=== PATIENT | female | born 2000 | race Caucasian/White ===

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

== ENCOUNTER → 2021-08-24 12:13 | Outpatient (CLI) | payer MEDICAID, SELFPAY ==
[2021-08-24 14:46] LABS: HCG,Quantitative 938 mIU/ml (0-5.42)
== END ==
PROVIDERS: Obstetrics & Gynecology; Visit Provider Nurse Practitioner Obstetrics & Gynecology
DX: Z34.90 Encounter for supervision of normal pregnancy, unspecified, unspecified trimester (principal)
CPT/HCPCS: 36415; 84702

== ENCOUNTER → 2021-08-26 09:50 | Outpatient (CLI) | payer MEDICAID, SELFPAY ==
[2021-08-26 11:18] LABS: HCG,Quantitative 2283 mIU/ml (0-5.42)
== END ==
PROVIDERS: Visit Provider Obstetrics & Gynecology
DX: Z34.90 Encounter for supervision of normal pregnancy, unspecified, unspecified trimester (principal)
CPT/HCPCS: 36415; 84702

== ENCOUNTER 2021-08-26 16:30 | Emergency (ER) | payer MEDICAID, SELFPAY ==
[2021-08-26 16:31] VITALS: BP 132/86; PULSE 99; RESP 18; TEMP 36.9; O2SAT 100; BMI 29.9
[2021-08-26 17:43] LABS: Microscopic, Urine URINE MICROSCOPIC (MICROSCOPIC)
[2021-08-26 17:45] LABS: Appearance,Urine SL CLOUDY (Clear); Bilirubin,Urine Negative (Negative); Blood, Urine 1+ (Negative); Color,Urine YELLOW (Yellow); Glucose,Urine (UA) Negative (Negative); Ketones,Urine Negative (Negative); Leukocyte Esterase,Urine TRACE (Negative); Nitrate,Urine Negative (Negative); PH,Urine 6.5 (5.0-8.5); Protein,Urine Negative (Negative); Specific Gravity, Urine 1.015 (1.005-1.030)
[2021-08-26 17:51] LABS: Urine Pregnancy, HCG Qual. Positive (Negative)
--- NOTE | 2021-08-26 17:55 | HMH.EDGENADL ---
ED Disposition Clinical Impression: UTI (urinary tract infection) Qualifiers: Urinary tract infection type: site unspecified Hematuria presence: without hematuria Qualified Code(s): N39.0 - Urinary tract infection, site not specified Qualifiers: Weeks of gestation: unspecified Qualified Code(s): Z34.90 - Encounter for supervision of normal , unspecified, unspecified trimester Disposition: Home, Self-Care Condition on Discharge: Good Instructions: DI for Urinary Tract Infection (UTI) Additional Instructions: Additional instructions for URINARY TRACT INFECTION: Take antibiotic as prescribed. Began first dose tomorrow evening. See your physician in 2-3 days for follow up and culture results. Return immediately if you have an uncontrollable fever greater than 102 degrees, severe back or abdominal pain, inability to urinate, or repetitive vomiting. Prescriptions: cephALEXin [cephALEXin 500mg capsule*] 500 mg PO Q6H #28 cap Transmission Status: Pending to [facility] #[id number] Referrals: Provider,Referral, [Primary Care Provider] - - Critical Care Critical Care Time: No Attestation: On 08/26/21, the high probability of a clinically significant, sudden or life threatening deterioration of the following system(s) required my full and direct attention, intervention and personal management. The time I documented below is in addition to time spent performing reported procedures but includes the following listed in this critical care notation. Medical Decision Making - Anuj Inquiry Pt receiving controlled substance: No Vital Signs: 08/26/21 16:31 Temperature 98.5 F Temperature Source Oral Pulse Rate [Left Radial] 99 H Respiratory Rate 18 Blood Pressure [Right Arm] 132/86 Blood Pressure Mean [Right Arm] 101 Blood Pressure Source [Right Arm] Automatic Cuff Blood Pressure Position [Right Arm] Sitting 02 Sat by Pulse Oximetry 100 Oxygen Delivery Method Room Air - Lab Data Lab Results 08/26/21 17:32: Urine Color Yellow, Urine Appearance Sl cloudy, Urine pH 6.5, Ur Specific [place] 1.015, Urine Protein Negative, Urine Glucose (UA) Negative, Urine Ketones Negative, Urine Blood 1+, Urine Nitrate Negative, Urine Bilirubin Negative, Urine Urobilinogen 4.0, Ur Leukocyte Esterase Trace, Urine RBC None, Urine WBC 10-20, Ur Squamous Epith Cells 3-5, Urine Bacteria Trace 08/26/21 17:32: Urine HCG, Qual Positive 08/26/21 18:00: WBC 16.0 H, RBC 5.04, Hgb 14.3, Hct 42.8, MCV 84.9, MCH 28.3, MCHC 33.4, RDW 13.1, Plt Count 275, MPV 7.6, Neut % (Auto) 84.7 H, Lymph % (Auto) 10.1, [place] % (Auto) 4.2, Eos % (Auto) 0.5, Baso % (Auto) 0.4, Neut # (Auto) 13.6 H, Lymph # (Auto) 1.6, [place] # (Auto) 0.7, Eos # (Auto) 0.1, Baso # (Auto) 0.1, Total Counted 100, Neutrophils % (Manual) 79 H, Lymphocytes % (Manual) 14, Monocytes % (Manual) 7, Platelet Estimate Normal, Hypochromasia 1+, Anisocytosis 2+ 08/26/21 18:00: Sodium 137, Potassium 3.2 L, Chloride 98, Carbon Dioxide 27, Anion Gap 15.2 H, BUN 4 L, Creatinine 0.60, Estimated Creat Clear 194, Estimated GFR 129, Est GFR ( Amer) 156, Glucose 116 H, Calcium 8.6, Total Bilirubin 1.2, AST 27, ALT 30, Alkaline Phosphatase 72, Total Protein 8.3 H, Albumin 4.6, Globulin 3.7 H, Albumin/Globulin Ratio 1.2 Result diagrams: 08/26/21 18:00 08/26/21 18:00 Orders (Tests/Meds): ED MEDICATIONS Generic Name Dose Route Start Last Admin Trade Name Freq PRN Reason Stop Dose Admin Ceftriaxone Sodium 1 gm/ 50 mls @ 100 mls/hr 08/26/21 18:45 08/26/21 19:03 Sodium Chloride IV 09/09/21 18:44 100 mls/hr Q24H JAYME Administration ORDERS Category Date Time Status Urine Culture Stat Micro 08/26/21 17:32 Received General Adult HPI - General Chief complaint: Urogenital-Female Stated complaint: cold flashes, cramping, () unknown #weeks Time Seen by Provider: 08/26/21 18:01 Mode of Arrival: Ambulatory Limitations: No Limitations Description of Symp
[2021-08-26 17:59] LABS: Bacteria,Urine Trace /lpf
[2021-08-26 18:13] LABS: Basophils # 0.1 K/mm3 (0-0.2); Basophils % 0.4 % (0.1-2.0); Eosinophils # 0.1 K/mm3 (0.0-0.4); Eosinophils % 0.5 % (0.1-12.0); Hematocrit 42.8 % (37.0-47.0); Hemoglobin 14.3 g/dL (12.2-16.2); Lymphocytes # 1.6 K/mm3 (0.7-4.5); Lymphocytes % 10.1 % (10-50); Mean Corpuscular HGB Conc 33.4 g/dL (31.8-35.4); Mean Corpuscular Hemoglobin 28.3 pg (27.0-31.2); Mean Corpuscular Volume 84.9 fl (81-99); Mean Platelet Volume 7.6 fl (7.4-10.4); Monocytes # 0.7 K/mm3 (0.1-1.0); Monocytes % 4.2 % (1.7-9.3); Neutrophils # 13.6 K/mm3 (1.8-7.8); Neutrophils % 84.7 % (37.0-80.0); Platelet Count 275 K/mm3 (142-424); Red Blood Count 5.04 M/mm3 (4.20-5.40); Red Cell Distribution Width 13.1 % (11.5-17.5)
[2021-08-26 18:15] LABS: MANUAL DIFFERENTIAL MANUAL DIFFERENTIAL (MANUAL DIFF)
[2021-08-26 18:16] LABS: Chloride 98 mmol/L (98-107); Potassium 3.2 mmoL/L (3.5-5.1); Sodium 137 mmol/L (136-145)
[2021-08-26 18:18] LABS: Blood Urea Nitrogen 4 mg/dl (7-17); Creatinine Clearance Estimated 194 mL/min (50-200); Estimated Glomerular Filt Rate 129 ml/min (>60); GFR (African American) 156 ML/MIN (>60)
[2021-08-26 18:19] LABS: Alanine Aminotransferase 30 U/L (12-78); Albumin Level 4.6 g/dl (3.5-5.0); Albumin/Globulin Ratio 1.2 (1.1-1.8); Alkaline Phosphatase 72 U/L (38-126); Anion Gap 15.2 mEq/L (5-15); Aspartate Amino Transferase 27 U/L (14-36); Bilirubin,Total 1.2 mg/dl (0.2-1.3); Calcium 8.6 mg/dl (8.4-10.2); Carbon Dioxide 27 mmol/L (22.0-30.0); Globulin 3.7 g/dL (1.3-3.2); Glucose 116 mg/dl (74-100); Total Protein,Serum 8.3 g/dl (6.3-8.2)
[2021-08-26 18:46] LABS: Anisocytosis 2+; Hypochromasia 1+; Lymphocytes % 14 % (10-50); Monocytes % 7 % (2-9); Neutrophils % 79 % (42-76); Platelet Estimate Normal; Total Cells Counted 100
[2021-08-26 20:02] VITALS: BP 116/70; PULSE 114; RESP 18; TEMP 36.7; O2SAT 96
== END 2021-08-26 20:16 | disposition home or self-care (01) ==
PROVIDERS: Emergency Provider Emergency Medicine
DX: O23.11 Infections of bladder in pregnancy, first trimester (principal)
CPT/HCPCS: 80053; 81001; 81025; 85007; 85025; 87086; 87088; 87186; 96365; 99282

== ENCOUNTER → 2021-09-03 14:01 | Outpatient (CLI) | payer MEDICAID, SELFPAY ==
--- NOTE | 2021-09-03 14:02 | US_ITS ---
PROCEDURE: US OB <= 14 WEEKS FETUS CLINICAL INDICATION: dates COMPARISON: No exams were available for comparison FINDINGS: There is an intrauterine gestational sac with a yolk sac noted. No pole identified at this. Gestational sac measures 1.7 x 0.9 cm. It may be too early to see an intrauterine pole. Follow-up suggested as well as correlation with beta HCG. There is a 9 mm nabothian cyst. A 16 mm corpus luteum cyst is present on the right. No cul-de-sac fluid. IMPRESSION: Intrauterine gestational sac with yolk sac noted but no pole apparent possibly too early for visualization. Follow-up ultrasound in 2 weeks as well as correlation with beta HCG suggested. Dictated by: Constantine Knox MD 09/03/2021 14:56 Constantine Knox MD in [place] 09/03/2021 14:56
== END ==
PROVIDERS: Visit Provider Obstetrics & Gynecology
DX: Z34.90 Encounter for supervision of normal pregnancy, unspecified, unspecified trimester (principal)
CPT/HCPCS: 76801

== ENCOUNTER → 2021-09-07 12:02 | Outpatient (CLI) | payer MEDICAID, SELFPAY | PROVIDERS: Visit Provider Obstetrics & Gynecology | DX: Z34.90 Encounter for supervision of normal pregnancy, unspecified, unspecified trimester (principal) | CPT/HCPCS: 36415; 84702 ==

== ENCOUNTER → 2021-09-10 12:44 | Outpatient (CLI) | payer MEDICAID, SELFPAY ==
--- NOTE | 2021-09-10 12:44 | US_ITS ---
PROCEDURE: US OB <= 14 WEEKS FETUS CLINICAL INDICATION: Dates COMPARISON: US US OB <= 14 WEEKS FETUS from 09/03/2021 FINDINGS: An intrauterine gestational sac is present with a pole with a crown-rump length of 0.67cm correlating to gestational age of 6weeks 4days. heart tones are present with an FHR of 122bpm. Yolk sac is noted. There are small nabothian cysts. There is a small right ovarian cyst at 9 mm with a echogenic/hypervascular ring suggesting a corpus luteum cyst. IMPRESSION: Live IUP at 6 weeks 4 days Estimated due date by Ultrasound is 05/02/2022 Dictated by: Constantine Knox MD 09/13/2021 07:54 Constantine Knox MD in [place] 09/13/2021 07:54
== END ==
PROVIDERS: Visit Provider Obstetrics & Gynecology
DX: Z34.90 Encounter for supervision of normal pregnancy, unspecified, unspecified trimester (principal)
CPT/HCPCS: 76801

== ENCOUNTER → 2021-09-14 08:06 | Outpatient (CLI) | payer MEDICAID, SELFPAY ==
[2021-09-17 09:24] LABS: Neisseria gonorrhoeae, NAA Negative (Negative)
== END ==
PROVIDERS: Visit Provider Obstetrics & Gynecology
DX: Z34.90 Encounter for supervision of normal pregnancy, unspecified, unspecified trimester (principal)
CPT/HCPCS: 87491; 87591

== ENCOUNTER → 2021-09-15 12:16 | Outpatient (CLI) | payer MEDICAID, SELFPAY ==
[2021-09-15 12:42] LABS: Basophils % 0.5 % (0.1-2.0); Eosinophils # 0.1 K/mm3 (0.0-0.4); Hematocrit 40.6 % (37.0-47.0); Hemoglobin 13.2 g/dL (12.2-16.2); Lymphocytes # 1.9 K/mm3 (0.7-4.5); Lymphocytes % 24.1 % (10-50); Mean Corpuscular HGB Conc 32.6 g/dL (31.8-35.4); Mean Corpuscular Hemoglobin 27.9 pg (27.0-31.2); Mean Corpuscular Volume 85.5 fl (81-99); Mean Platelet Volume 7.4 fl (7.4-10.4); Monocytes # 0.3 K/mm3 (0.1-1.0); Monocytes % 4.4 % (1.7-9.3); Neutrophils # 5.4 K/mm3 (1.8-7.8); Neutrophils % 69.9 % (37.0-80.0); Platelet Count 279 K/mm3 (142-424); Red Blood Count 4.74 M/mm3 (4.20-5.40); White Blood Count 7.7 K/mm3 (4.5-13.0)
[2021-09-16 08:22] LABS: Rubella Antibodies, IgG 9.05 index (Immune >0.99)
[2021-09-16 09:27] LABS: HIV Screen 4th Generation wRfx Non Reactive (Non Reactive); Hepatitis B Surface Antigen Negative (Negative); Hepatitis C Antibody <0.1 s/co ratio (0.0-0.9)
[2021-09-16 12:11] LABS: Rapid Plasma Reagin Ab Titer Non Reactive (NonRea<1:1)
== END ==
PROVIDERS: Visit Provider Obstetrics & Gynecology
DX: Z34.90 Encounter for supervision of normal pregnancy, unspecified, unspecified trimester (principal)
CPT/HCPCS: 36415; 85025; 86592; 86703; 86762; 86850; 87340; 87380; G0432

== ENCOUNTER 2021-09-24 15:28 | Emergency (ER) | payer MEDICAID, SELFPAY ==
[2021-09-24 15:50] VITALS: BP 109/85; PULSE 101; RESP 19; TEMP 37.2; O2SAT 99; BMI 35.2
--- NOTE | 2021-09-24 16:39 | HMH.EDUTC ---
[facility] [place] Disposition Clinical Impression: Viral upper respiratory illness Disposition: Home, Self-Care Condition on Discharge: Good Instructions: DI for Viral Upper Respiratory Infection -- Adult, DI for Cough -- Adult Additional Instructions: *Monitor Temp, Over the counter Motrin or Tylenol as directed/as needed Tylenol every 4 hours and Motrin every 6 hours (as long as your family doctor has told you that you can take it) for fever or pain. and straight to ER if unable to lower temp less than 101.0 after medication given *Warm salt water gargles may help to soothe the throat *Throat Lozenges *Warm fluids like tea with honey may help to soothe the throat *Sleep elevated *Humidifier/Vaporizer Your throat swab was sent for culture. Those results are typically sent to your primary care. Be sure to follow up in 2-3 days with your family doctor/primary care physician if no improvement so they can review those result and treat if necessary. If you don?t have a primary care doctor, I recommend you get one but in the mean time, you will have to return to a walk in clinic Follow up IMMEDIATELY for new or worsening symptoms or no Noticeable improvement over the next 48-72 hours. 911 for difficulty breathing or swallowing Make sure to check with pharmacy prior to taking any medication while you are You were tested for today for COVID19 your test result should be back in the next 24-48 hours, you may check for your results on the [facility] My Health Portal if you have trouble logging on or seeing your results you may call You was given a handout with instructions for Self Quarantine and Self isolation for while you wait on test results and what to do if they are positive If you are positive the Health Dept will be contacting you also Make sure to take your Vitamins Vit. C Vit D and Zinc if you can take them Referrals: Provider,Referral, [Primary Care Provider] - Forms: Work/School Release Time of Disposition: 16:42 Medical Decision Making - Anuj Inquiry Pt receiving controlled substance: No Anuj was queried for this patient: No Vital Signs: 09/24/21 15:50 Temperature 98.9 F Temperature Source Oral Pulse Rate [Right Brachial] 101 H Respiratory Rate 19 Blood Pressure [Right Arm] 109/85 L Blood Pressure Mean [Right Arm] 93 Blood Pressure Source [Right Arm] Automatic Cuff Blood Pressure Position [Right Arm] Sitting 02 Sat by Pulse Oximetry 99 Oxygen Delivery Method Room Air - Lab Data Lab results reviewed: Yes: I reviewed the patient's lab results. Orders (Tests/Meds): ORDERS Category Date Time Status Covid-19 Nasal PCR ([facility]) Routine Lab 09/24/21 16:06 Received [facility] UTC HPI - General Stated complaint: cough, congestion Time Seen by Provider: 09/24/21 16:39 Mode of Arrival: Ambulatory Source of Information: Patient Limitations: No Limitations Description of Symptoms (Recalled from Triage Doc. by RN): PATIENT C/O COUGH, CONGESTION, AND HEADACHE X 2 DAYS HEENT Symptoms (Recalled from RN notes): Yes Resp Symptoms (Recalled from RN notes): No Skin Symptoms (Recalled from RN notes): No MS Symptoms (Recalled from RN notes): No Functional Status (Recalled from RN notes): WNL - History of Present Illness Provider Complaint: Patient states that she has been having cough, nasal congestion and scratchy throat for a couple of days States that she is 8wks OB and she has been taking OTC medication but she was worried that she may have COVID so she came in to get tested - Related Data Allergies Allergy/AdvReac Type Severity Reaction Status Date / Time No Known Allergies Allergy Verified 09/14/21 16:26 - Worker's Comp Is this a Worker's Comp case?: No [facility] History - Hepatitis A Screen Drug use history?: No High risk sexual behaviors?: No History of sexually transmitted infection?: No Currently employed?: No Childcare worker?: No Do you have indoor plumbing?: Yes Do you have electricity?: Yes
[2021-09-24 16:52] VITALS: BP 109/85; PULSE 101; RESP 19; TEMP 37.2; O2SAT 99
[2021-09-24 17:01] LABS: UTC Strep Screen (Rapid) Negative (Negative)
--- NOTE | 2021-09-25 13:05 | PC.NURSE ---
PATIENT NOTIFIED OF POSITIVE COVID TEST AT THIS TIME
== END 2021-09-24 17:00 | disposition home or self-care (01) ==
PROVIDERS: Emergency Provider Nurse Practitioner
DX: J06.9 Acute upper respiratory infection, unspecified (principal); U07.1 COVID-19
CPT/HCPCS: 87880; 99203; C9803; G0463; U0003; U0005

== ENCOUNTER 2021-10-24 09:54 | Emergency (ER) | payer MEDICAID, SELFPAY ==
[2021-10-24 10:45] VITALS: BP 124/72; PULSE 82; RESP 18; TEMP 36.9; O2SAT 98; BMI 34.4
[2021-10-24 11:04] LABS: UTC Strep Screen (Rapid) Positive (Negative)
--- NOTE | 2021-10-24 11:19 | HMH.EDUTC ---
[facility] [place] Clinical Impression: Strep throat Otitis Qualifiers: Laterality: right Qualified Code(s): H66.91 - Otitis media, unspecified, right ear Disposition: Home, Self-Care Condition on Discharge: Good Instructions: Sore Throat, Strep Throat, Middle Ear Infection Additional Instructions: *Monitor Temp, Over the counter Motrin or Tylenol as directed/as needed Tylenol every 4 hours and Motrin every 6 hours (as long as your family doctor has told you that you can take it) for fever or pain. and straight to ER if unable to lower temp less than 101.0 after medication given *Warm salt water gargles may help to soothe the throat *Throat Lozenges *Warm fluids like tea with honey may help to soothe the throat *Sleep elevated *Humidifier/Vaporizer *If you did not take Penicillin shot or was unable to, start taking antibiotic immediately and make sure that you take it for the FULL length of time although you should start to feel better in 24-48 hours *change toothbrush and toothpaste 24-48 hours after starting to take antibiotics so you do not reinfect yourself Monitor Temp. Tylenol and/or Ibuprofen as needed. ER if fever is no less than 101 despite alternating Tylenol and Ibuprofen * Encourage fluids, water, Gatorade, powerade, pedialyte if /toddler/or child *Cold fluids, popsicles and ice cream may feel good on his throat Follow up IMMEDIATELY for new or worsening symptoms or no Noticeable improvement over the next 48-72 hours. 911 for difficulty breathing or swallowing Prescriptions: Amoxicillin [Amoxicillin 500mg Cap] 500 mg PO TID #30 cap Transmission Status: Pending to [employer] #[id number] Referrals: Provider,Referral, [Primary Care Provider] - As needed Time of Disposition: 11:26 Medical Decision Making - Anuj Inquiry Pt receiving controlled substance: No Anuj was queried for this patient: No Vital Signs: 10/24/21 10:45 Temperature 98.5 F Temperature Source Oral Pulse Rate [Right Brachial] 82 Respiratory Rate 18 Blood Pressure [Right Arm] 124/72 Blood Pressure Mean [Right Arm] 89 Blood Pressure Source [Right Arm] Automatic Cuff Blood Pressure Position [Right Arm] Sitting 02 Sat by Pulse Oximetry 98 Oxygen Delivery Method Room Air - Lab Data Lab results reviewed: Yes: I reviewed the patient's lab results. Lab Results 10/24/21 10:40: Strep Scn Rapid Clinic Positive A Medical Decision Narrative: due to medication was discussed with pharmacy [facility] [place]PI - General Stated complaint: sore throat Time Seen by Provider: 10/24/21 11:19 Mode of Arrival: Ambulatory Source of Information: Patient Limitations: No Limitations Description of Symptoms (Recalled from Triage Doc. by RN): PATIENT C/O SORE THROAT, CNOGESTION AND COUGH X 2 DAYS HEENT Symptoms (Recalled from RN notes): Yes Resp Symptoms (Recalled from RN notes): Yes Skin Symptoms (Recalled from RN notes): No MS Symptoms (Recalled from RN notes): No Functional Status (Recalled from RN notes): WNL - History of Present Illness Provider Complaint: Patient states that she is 13wks OB States that she has been having sore throat, nasal congestion and cough for several days that was worse today Says it hurts when she swallows and feel raw and irritated - Related Data Home Medications Medication Instructions Recorded Confirmed vit no.95-ferrous 1 tab PO DAILY 10/12/21 10/24/21 fumarate 28 mg-folic acid 800 mcg tablet Previous Rx's Medication Instructions Recorded Amoxicillin [Amoxicillin 500mg 500 mg PO TID #30 cap 10/24/21 Cap] Allergies Allergy/AdvReac Type Severity Reaction Status Date / Time No Known Allergies Allergy Verified 10/12/21 09:16 - Worker's Comp Is this a Worker's Comp case?: No [facility] History - Hepatitis A Screen Drug use history?: No High risk sexual behaviors?: No History of sexually transmitted infection?: No Currently employed?:
[2021-10-24 11:36] VITALS: BP 124/72; PULSE 82; RESP 18; TEMP 36.9; O2SAT 98
== END 2021-10-24 11:40 | disposition home or self-care (01) ==
LOC: UTC 09:55 → ER 10:21 → UTC 10:24
PROVIDERS: Emergency Provider Nurse Practitioner
DX: J02.0 Streptococcal pharyngitis (principal)
CPT/HCPCS: 87880; 99202; G0463

== ENCOUNTER → 2021-12-09 12:43 | Outpatient (CLI) | payer MEDICAID, SELFPAY ==
--- NOTE | 2021-12-09 12:43 | US_ITS ---
FINAL REPORT CLINICAL HISTORY: anatomy scan 20 wk FINDINGS: There is a single live intrauterine gestation. Presentation is breech. The cervix is closed and measures 3.8 cm. Placenta is anterior and grade 1. Cardiac activity is confirmed at 149 bpm. The fetus is active. Three-vessel cord with satisfactory umbilical cord insertion. Four-chamber heart is noted. brain and ventricles are unremarkable. Chest and diaphragm are unremarkable. ABDOMEN: Both kidneys are unremarkable. Stomach is unremarkable. SPINE: No anomalies identified. Both arms and legs noted. AMNIOTIC FLUID: Appropriate amount. MEASUREMENTS: ULTRASOUND AGE: 20 weeks 0 days. GESTATION AGE: 19 weeks 3 days. ESTIMATED WEIGHT: 334 g GROWTH PERCENTILE: 84% BPD: 4.5 cm consistent with 19 weeks 4 days. OFD: 6.1 cm consistent with 20 weeks 5 days. HC: 16.9 cm consistent with 19 weeks 4 days. AC: 15.4 cm consistent with 20 weeks 5 days. FL: 3.2 cm consistent with 19 weeks 6 days. CEREBELLUM: 2.0 cm consistent with 20 weeks 1 days. HUMERUS: 3 cm consistent with 19 weeks 6 days. HC/AC: 1.09 CI: 72% FL/BPD: 71% FL/AC: 20% IMPRESSION: Single living IUP with an ultrasound age of 20 weeks 0 days. Reviewed, Interpreted and Dictated by Nasim Thomason MD Transcribed by Mak Feldman Authenticated by Nasim Thomason MD on 12/09/2021 02:22:25 PM [facility]
== END ==
PROVIDERS: PCP Obstetrics & Gynecology; Visit Provider Obstetrics & Gynecology
DX: Z34.90 Encounter for supervision of normal pregnancy, unspecified, unspecified trimester (principal)
CPT/HCPCS: 76801

== ENCOUNTER → 2022-02-02 08:06 | Outpatient (CLI) | payer MEDICAID, SELFPAY ==
[2022-02-02 09:00] LABS: Glucose,Fasting 81 mg/dl (74-100)
[2022-02-02 10:31] LABS: Glucose 1 Hour 117 mg/dL (74-100)
== END ==
PROVIDERS: Visit Provider Obstetrics & Gynecology
DX: Z34.90 Encounter for supervision of normal pregnancy, unspecified, unspecified trimester (principal)
CPT/HCPCS: 36415; 82951

== ENCOUNTER 2022-02-15 12:41 | Emergency (ER) | payer MEDICAID, SELFPAY ==
[2022-02-15 13:10] LABS: Strep Scrn Group A (Rapid) Negative (Negative)
[2022-02-15 13:17] VITALS: BP 140/84; PULSE 112; RESP 14; TEMP 36.7; O2SAT 96; BMI 39.9
--- NOTE | 2022-02-15 13:35 | HMH.EDUTC ---
[facility] [place] Disposition Clinical Impression: Pharyngitis Qualifiers: Pharyngitis/tonsillitis etiology: unspecified etiology Qualified Code(s): J02.9 - Acute pharyngitis, unspecified Sinusitis Qualifiers: Sinusitis location: unspecified location Chronicity: acute Recurrence: non-recurrent Qualified Code(s): J01.90 - Acute sinusitis, unspecified Disposition: Home, Self-Care Condition on Discharge: Good Instructions: DI for Sinusitis, Sinusitis, DI for Pharyngitis/Tonsillopharyngitis -- Adult Additional Instructions: Drink plenty of fluids. Take tylenol or ibuprofen for pain or fever. Take the medications as directed. Follow up with your regular doctor. GO TO THE ER FOR ANY WORSENING SYMPTOMS Prescriptions: Brompheniramine/Pseudoephed/Dm [Bromfed Dm Cough Syrup] 5 ml PO Q6HP PRN #240 ml PRN Reason: Cough Transmission Status: Pending to [employer] # Azithromycin [Z-Marlon 250mg Tab*] 250 mg PO UD DOSE PK #6 tab Transmission Status: Pending to [employer] # Referrals: Provider,Referral, [Primary Care Provider] - Time of Disposition: 13:55 Medical Decision Making - Medical Records Medical records reviewed: No: I reviewed the patient's medical records. - Anuj Inquiry Pt receiving controlled substance: No Vital Signs: 02/15/22 13:17 Temperature 98.1 F Temperature Source Oral Pulse Rate [Left] 112 H Respiratory Rate 14 Blood Pressure [Right Arm] 140/84 Blood Pressure Mean [Right Arm] 102 02 Sat by Pulse Oximetry 96 - Lab Data Lab results reviewed: Yes: I reviewed the patient's lab results. Lab Results 02/15/22 12:52: Group A Strep Rapid Negative Orders (Tests/Meds): ORDERS Category Date Time Status Strep Screen Confirmation Stat Micro 02/15/22 12:52 Received [facility] [place] HPI - General Stated complaint: sore throat, congestion Time Seen by Provider: 02/15/22 13:35 Mode of Arrival: Ambulatory Source of Information: Patient Limitations: No Limitations Description of Symptoms (Recalled from Triage Doc. by RN): pt c/o a sore throat, congestion and nasal drainage x2 days. HEENT Symptoms (Recalled from RN notes): Yes Resp Symptoms (Recalled from RN notes): No Skin Symptoms (Recalled from RN notes): No MS Symptoms (Recalled from RN notes): No Functional Status (Recalled from RN notes): wnl - History of Present Illness Provider Complaint: She states that for the past 2 days she has had a sore throat, ear pain, and she has felt bad. - Related Data Home Medications Medication Instructions Recorded Confirmed vit no.95-ferrous 1 tab PO DAILY 10/12/21 02/07/22 fumarate 28 mg-folic acid 800 mcg tablet Previous Rx's Medication Instructions Recorded Azithromycin [Z-Marlon 250mg Tab*] 250 mg PO UD DOSE PK #6 tab 02/15/22 Brompheniramine/Pseudoephed/Dm 5 ml PO Q6HP PRN #240 ml 02/15/22 [Bromfed Dm Cough Syrup] Allergies Allergy/AdvReac Type Severity Reaction Status Date / Time No Known Allergies Allergy Verified 02/07/22 09:10 - Worker's Comp Is this a Worker's Comp case?: No [facility] History - Hepatitis A Screen Drug use history?: No High risk sexual behaviors?: No History of sexually transmitted infection?: No Currently employed?: No Childcare worker?: No Do you have indoor plumbing?: Yes Do you have electricity?: Yes Attestation statement:: This patient has been screened for Hepatitis A risk factors. I have reviewed the patient's past medical history: Yes Amputation: No Fractures: No - Social History Smoking Status: Never smoker Alcohol Intake: never Alcohol Intake Frequency:: other Substance Use Type: denies use Occupational Status: other Family Hx:: Heart Attack, Hypertension ROS Obtained: Yes All systems reviewed & no additional complaints - Eyes Eyes: Denies eye discharge - ENT Ears, Nose, Mouth, and Throat: Reports as per HPI - Cardiovascular Cardiovascular: Denies chest pain - Respira
[2022-02-15 14:09] VITALS: BP 140/84; PULSE 112; RESP 14; TEMP 36.7
== END 2022-02-15 14:10 | disposition home or self-care (01) ==
PROVIDERS: Emergency Provider Nurse Practitioner Family
DX: J01.90 Acute sinusitis, unspecified (principal); J02.9 Acute pharyngitis, unspecified
CPT/HCPCS: 87430; 99212; G0463

== ENCOUNTER → 2022-03-14 14:46 | Outpatient (CLI) | payer MEDICAID, SELFPAY ==
--- NOTE | 2022-03-14 14:46 | US_ITS ---
FINAL REPORT CLINICAL HISTORY: Growth and KALYANI FINDINGS: There is a single live intrauterine gestation. Presentation is cephalic. Placenta is 3.2 cm. The fetus is active. Heart rate is 138 beats per minute. AMNIOTIC FLUID: Appropriate amount. KALYANI: 14.3 cm MEASUREMENTS: ULTRASOUND AGE: 33 weeks 0 days. GESTATION AGE: 33 weeks 0 days. ESTIMATED WEIGHT: 2028 g GROWTH PERCENTILE: 32% BPD: 8.3 cm corresponding with 33 weeks 4 days. OFD: 10.5 cm corresponding with 33 weeks 0 days. HC: 29.8 cm corresponding with 33 weeks 0 days. AC: 28.3 cm corresponding with 32 weeks 3 days. FL: 6.4 cm corresponding with 33 weeks 0 days. HC/AC: 1.05 CI: 79% FL/BPD: 76% FL/AC: 22% IMPRESSION: Single living IUP with an ultrasound age of 33 weeks 0 days. KALYANI of 14.3 cm Reviewed, Interpreted and Dictated by Rangel Hay III, MD Transcribed by Carolina Fisher Authenticated by Rangel Hay III, MD on 03/14/2022 05:01:02 PM [facility]
== END ==
PROVIDERS: Visit Provider Obstetrics & Gynecology
DX: O36.5990 Maternal care for other known or suspected poor fetal growth, unspecified trimester, not applicable or unspecified (principal); Z34.90 Encounter for supervision of normal pregnancy, unspecified, unspecified trimester
CPT/HCPCS: 76816

== ENCOUNTER → 2022-04-04 16:54 | Outpatient (CLI) | payer MEDICAID, SELFPAY | PROVIDERS: Visit Provider Obstetrics & Gynecology | DX: Z34.90 Encounter for supervision of normal pregnancy, unspecified, unspecified trimester (principal) | CPT/HCPCS: 86403 ==

== ENCOUNTER 2022-04-06 18:07 | Outpatient (CLI) | payer MEDICAID, SELFPAY ==
[2022-04-06 18:24] VITALS: BP 157/91; PULSE 114; RESP 19; TEMP 37.1; O2SAT 98
[2022-04-06 18:26] VITALS: BMI 38.2
[2022-04-06 18:39] LABS: Microscopic, Urine URINE MICROSCOPIC (MICROSCOPIC)
[2022-04-06 18:44] LABS: Appearance,Urine CLEAR (Clear); Bilirubin,Urine Negative (Negative); Blood, Urine Negative (Negative); Color,Urine YELLOW (Yellow); Glucose,Urine (UA) Negative (Negative); Ketones,Urine Negative (Negative); Leukocyte Esterase,Urine Negative (Negative); Nitrate,Urine Negative (Negative); PH,Urine 6.5 (5.0-8.5); Protein,Urine Negative (Negative)
[2022-04-06 18:57] VITALS: BP 157/91; PULSE 114; RESP 19; TEMP 37.1; O2SAT 99; BMI 38.2
[2022-04-06 18:57] LABS: Amphetamine/Metha Screen,Urine Negative ng/ml (<1000); Benzodiazepines Screen,Urine Negative ng/ml (<200)
[2022-04-06 18:58] LABS: Barbiturates Screen,Urine Negative ng/ml (<200)
[2022-04-06 18:59] LABS: Cannabinoid Screen,Urine Negative ng/ml (<50); Cocaine Screen,Urine Negative ng/ml (<300)
[2022-04-06 19:00] LABS: Methadone Screen,Urine Negative ng/ml (<300)
[2022-04-06 19:01] LABS: Opiate Screen,Urine Negative ng/ml (<300); Phencyclidine Screen,Urine Negative ng/ml (<25)
[2022-04-06 19:12] LABS: RBC,Urine Occasional #/hpf (0-3)
== END 2022-04-06 19:15 | disposition home or self-care (01) ==
LOC: OBOUT 18:09 → OB 18:09
PROVIDERS: Visit Provider Obstetrics & Gynecology
DX: O26.893 Other specified pregnancy related conditions, third trimester (principal); Z3A.36 36 weeks gestation of pregnancy
CPT/HCPCS: 59025; 80305; 81001; G0463

== ENCOUNTER → 2022-04-15 09:42 | Outpatient (CLI) | payer MEDICAID, SELFPAY ==
[2022-04-17 11:01] LABS: Patient Height,Urine 65 inches; Patient Weight,Urine 241 lbs; Total Volume,Urine 1850 mL (600-1600)
[2022-04-17 11:48] LABS: Creatinine 24 Hour,Urine 1758 mg/24hr (630-2500)
[2022-04-17 11:49] LABS: Total Protein 24 Hour,Urine 722 mg/24 hr (40-90)
[2022-04-17 12:04] LABS: Creatinine,Urine Random 95 mg/dL (Not Estab.)
[2022-04-17 12:06] LABS: Collection Time,Urine 24 hours
== END ==
PROVIDERS: Visit Provider Obstetrics & Gynecology
DX: O16.9 Unspecified maternal hypertension, unspecified trimester (principal)
CPT/HCPCS: 82575; 84155

== ENCOUNTER → 2022-04-17 09:25 | Outpatient (CLI) | payer MEDICAID, SELFPAY | PROVIDERS: Visit Provider Obstetrics & Gynecology | DX: Z34.90 Encounter for supervision of normal pregnancy, unspecified, unspecified trimester (principal) ==

== ENCOUNTER → 2022-04-18 09:30 | Outpatient (CLI) | payer MEDICAID, SELFPAY ==
[2022-04-18 10:00] LABS: Basophils # 0.1 K/mm3 (0-0.2); Basophils % 1.1 % (0.1-2.0); Eosinophils # 0.1 K/mm3 (0.0-0.4); Eosinophils % 0.7 % (0.1-12.0); Hematocrit 39.2 % (37.0-47.0); Hemoglobin 13.2 g/dL (12.2-16.2); Lymphocytes # 1.3 K/mm3 (0.7-4.5); Lymphocytes % 14.2 % (10-50); Mean Corpuscular HGB Conc 33.7 g/dL (31.8-35.4); Mean Corpuscular Hemoglobin 26.9 pg (27.0-31.2); Mean Corpuscular Volume 79.8 fl (81-99); Mean Platelet Volume 9.7 fl (7.4-10.4); Monocytes # 0.3 K/mm3 (0.1-1.0); Monocytes % 3.3 % (1.7-9.3); Neutrophils # 7.3 K/mm3 (1.8-7.8); Neutrophils % 80.7 % (37.0-80.0); Platelet Count 232 K/mm3 (142-424); Red Blood Count 4.92 M/mm3 (4.20-5.40); White Blood Count 9.1 K/mm3 (4.5-13.0)
[2022-04-18 10:06] LABS: D-Dimer 1.79 ug/mL (0.0-0.5)
[2022-04-18 10:28] LABS: Chloride 105 mmol/L (98-107); Potassium 3.8 mmoL/L (3.5-5.1); Sodium 136 mmol/L (136-145)
[2022-04-18 10:31] LABS: Alanine Aminotransferase 70 U/L (12-78); Aspartate Amino Transferase 63 U/L (14-36); Blood Urea Nitrogen 6 mg/dl (7-17); Estimated Glomerular Filt Rate 157 ml/min (>60); GFR (African American) 190 ML/MIN (>60)
[2022-04-18 10:32] LABS: Anion Gap 13.8 mEq/L (5-15); Calcium 9.7 mg/dl (8.4-10.2); Carbon Dioxide 21 mmol/L (22.0-30.0); Glucose 129 mg/dl (74-100)
[2022-04-18 10:41] LABS: Uric Acid 5.1 mg/dl (2.5-6.2)
[2022-04-18 10:49] LABS: Activated Partial Thrombo Time 25.4 seconds (22.8-30.6); Fibrinogen 248 mg/dL (229.9-363.5); INR 0.89 (0.9-1.1); Prothrombin Time 10.1 seconds (10.1-12.5)
[2022-04-18 16:35] LABS: Coronavirus 19, PCR Not Detected (NotDetected); Influenza A, PCR Not Detected (NotDetected); Influenza B, PCR Not Detected (NotDetected)
== END ==
PROVIDERS: Visit Provider Obstetrics & Gynecology
DX: O16.9 Unspecified maternal hypertension, unspecified trimester (principal)
CPT/HCPCS: 36415; 80048; 84450; 84460; 84550; 85025; 85378; 85384; 85610; 85730; C9803; U0003; U0005

== ENCOUNTER 2022-04-18 16:13 | Inpatient (IN) | payer MEDICAID, SELFPAY ==
[2022-04-18 16:29] VITALS: BMI 39.9
[2022-04-18 17:03] LABS: Basophils # 0.2 K/mm3 (0-0.2); Basophils % 1.9 % (0.1-2.0); Eosinophils # 0.1 K/mm3 (0.0-0.4); Eosinophils % 0.7 % (0.1-12.0); Hematocrit 40.7 % (37.0-47.0); Hemoglobin 13.5 g/dL (12.2-16.2); Lymphocytes # 2.2 K/mm3 (0.7-4.5); Lymphocytes % 21.8 % (10-50); Mean Corpuscular HGB Conc 33.2 g/dL (31.8-35.4); Mean Corpuscular Hemoglobin 26.3 pg (27.0-31.2); Mean Platelet Volume 9.6 fl (7.4-10.4); Monocytes # 0.4 K/mm3 (0.1-1.0); Monocytes % 4.3 % (1.7-9.3); Neutrophils % 71.3 % (37.0-80.0); Platelet Count 253 K/mm3 (142-424); Red Blood Count 5.15 M/mm3 (4.20-5.40); White Blood Count 9.9 K/mm3 (4.5-13.0)
[2022-04-18 17:19] LABS: Chloride 104 mmol/L (98-107); Potassium 3.7 mmoL/L (3.5-5.1); Sodium 136 mmol/L (136-145)
[2022-04-18 17:22] LABS: Alanine Aminotransferase 72 U/L (12-78); Albumin/Globulin Ratio 1.3 (1.1-1.8); Alkaline Phosphatase 162 U/L (38-126); Anion Gap 13.7 mEq/L (5-15); Aspartate Amino Transferase 67 U/L (14-36); Bilirubin,Total 0.6 mg/dl (0.2-1.3); Blood Urea Nitrogen 4 mg/dl (7-17); Calcium 9.4 mg/dl (8.4-10.2); Carbon Dioxide 22 mmol/L (22.0-30.0); Creatinine Clearance Estimated 308 mL/min (50-200); Estimated Glomerular Filt Rate 157 ml/min (>60); GFR (African American) 190 ML/MIN (>60); Globulin 3.2 g/dL (1.3-3.2); Glucose 81 mg/dl (74-100); Total Protein,Serum 7.2 g/dl (6.3-8.2)
[2022-04-18 17:26] VITALS: BMI 40.1
[2022-04-18 20:34] VITALS: BP 142/93; PULSE 103; RESP 18; TEMP 36.9; O2SAT 98
[2022-04-19] VITALS (7 sets, daily range): BP systolic 115–141; BP diastolic 68–91; PULSE 76–83; RESP 16–19; TEMP 36.8–37.4; O2SAT 98–100
--- NOTE | 2022-04-19 09:05 | HMH.HP ---
*Admission Date: 04/18/22 *Chief complaint: Induction of Labor *History of present illness: 21 yo G1 @ 38 wks Scheduled induction of labor for pre-eclampsia Favorable cervix 3cm with reassuring testing Labs and BP in mild pre-eclampsia range [facility] History I have reviewed the patient's past medical history: Yes *Have you ever received a pneumonia vaccine?: No *Have you received a flu vaccine this season?: No Anesthesia experience/problems:: nac Other Surgeries: No: Amputation: No Fractures: No - *Social History Smoking Status: Never smoker Alcohol Intake: never Alcohol Intake Frequency:: other Substance Use Type: denies use *Occupational Status:: other *Travel in the last 8 weeks: None Family Hx:: Heart Attack, Hypertension Para: 0 Review of Systems - Review of Systems Review of systems:: pertinent systems reviewed and negative unless documented below - *Genitourinary Denies abnormal vaginal bleeding - *Neurologic Denies headache(s), Denies other visual disturbances Meds Home Medications Medication Instructions Recorded Confirmed Type vit no.95-ferrous 1 tab PO DAILY 10/12/21 04/18/22 History fumarate 28 mg-folic acid 800 mcg tablet Allergies Allergy/AdvReac Type Severity Reaction Status Date / Time No Known Allergies Allergy Verified 04/18/22 08:37 Exam Vital signs and Labs for Last 24 Hours: Temp Pulse Resp BP Pulse Ox 98.7 F 76 19 133/85 99 04/19/22 12:00 04/19/22 12:00 04/19/22 12:00 04/19/22 12:00 04/19/22 12:00 Laboratory Results - last 24 hr 04/18/22 16:49: Sodium 136, Potassium 3.7, Chloride 104, Carbon Dioxide 22, Anion Gap 13.7, BUN 4 L D, Creatinine 0.50 L, Estimated Creat Clear 308 H, Estimated GFR 157, Est GFR ( Amer) 190, Glucose 81 D, Calcium 9.4, Total Bilirubin 0.6, AST 67 H, ALT 72, Alkaline Phosphatase 162 H, Total Protein 7.2, Albumin 4.0, Globulin 3.2, Albumin/Globulin Ratio 1.3 04/18/22 16:49: Blood Type A Positive, Antibody Screen Negative I & O for Last 24 hours: Intake & Output 04/17/22 04/18/22 04/19/22 04/20/22 11:59 11:59 11:59 11:59 Weight 241 lb - Constitutional no acute distress - *Routine HEENT Exam Head: Present: normocephalic Eye: Present: EOMI, PERRL ENT: Present: mucous membranes moist - *Routine Neck Exam Present: supple. Absent: lymphadenopathy - *Routine Respiratory Exam Present: CTA bilaterally - *Routine Cardiovascular Exam Present: RRR - *Routine Abdominal Exam Present: soft, normoactive bowel sounds. Absent: tenderness - *Routine Rectal Exam Rectal:: deferred - *Routine Genitalia Exam Genitalia:: normal female Comment:: cervix - *Routine Extremities Exam Absent: cyanosis, clubbing, edema - *Routine Skin Exam Present: warm. Absent: rash - *Routine Neurological Exam Present: alert, oriented X3 Assessment and Plan (1) 38 weeks gestation of Status: Acute Category: Medical Code(s): Z3A.38 - 38 weeks gestation of (2) Pre-eclampsia in third trimester Status: Acute Category: Medical Code(s): O14.93 - Unspecified pre-eclampsia, third trimester (3) Obesity, Class II, BMI 35-39.9, no comorbidity Status: Acute Category: Medical Code(s): E66.9 - Obesity, unspecified - Assessment and plan all Dx Assessment and Plan for all problems:: Pitocin augmentation for induction of labor Continuous monitoring Epidural at patient request
--- NOTE | 2022-04-19 10:12 | HMH.LABNOT ---
Labor Note - Subjective: Date: 04/19/22 Time: 10:12 regular contraction - Objective: NST:: Reactive Contractions:: every 2-3 minutes Membranes: artificially ruptured Comment:: AROM with clear fluid IUPC placed without difficulty - Fetus: monitoring type:: Internal and External - Assessment: Patient Problems: All Active Problems 38 weeks gestation of (Acute) Pre-eclampsia in third trimester (Acute) Hypertension affecting (Acute) Pharyngitis (Acute) Sinusitis (Acute) Positive urine drug screen (Acute) COVID-19 affecting , antepartum (Acute) Obesity, Class II, BMI 35-39.9, no comorbidity (Acute) (Acute) UTI (urinary tract infection) (Acute) - Plan: Comment:: Continue pitocin augmentation Epidural at request Continuous monitoring
--- NOTE | 2022-04-19 15:14 | HMH.ANESCL ---
[facility] Anesthesia Checklist - Patient Identification Patient Identification: Arm Band - Structural Data Admitted From: Inpatient Planned Operative Procedure/s: Labor Epidural Consent for Planned Operative Procedure(s) Verified: Yes Verified Documents: Surgical Consent, History and Physical - NPO Status Verified Time NPO: 00:00 - Additional verifications Anesthesia Reactions: No - Airway Assessment C-Spine Mobility Assessed: Yes TMJ Mobility Assessed: Yes Dentition: Good Dentition - Neurological Assessment Level of Consciousness: Awake, Alert - Anesthesia Plan Anesthesia Risk discussed: Yes Anesthesia Plan: Verified ASA Class: II Anesthesia Type: Epidural [facility] History I have reviewed the patient's past medical history: Yes *Have you ever received a pneumonia vaccine?: No *Have you received a flu vaccine this season?: No Anesthesia experience/problems:: nac Other Surgeries: No: Amputation: No Fractures: No - *Social History Smoking Status: Never smoker Alcohol Intake: never Alcohol Intake Frequency:: other Substance Use Type: denies use *Occupational Status:: other *Travel in the last 8 weeks: None Family Hx:: Heart Attack, Hypertension Para: 0
--- NOTE | 2022-04-19 17:14 | HMH.LABNOT ---
Labor Note - Subjective: Date: 04/19/22 Time: 16:14 regular contraction - Objective: NST:: Reactive Cervical Dilation:: 6 Effacement:: 90% Station: -1 Membranes: artificially ruptured - Fetus: monitoring type:: Internal and External - Assessment: Labor progressing?: No Patient Problems: All Active Problems 38 weeks gestation of (Acute) Pre-eclampsia in third trimester (Acute) Hypertension affecting (Acute) Pharyngitis (Acute) Sinusitis (Acute) Positive urine drug screen (Acute) COVID-19 affecting , antepartum (Acute) Obesity, Class II, BMI 35-39.9, no comorbidity (Acute) (Acute) UTI (urinary tract infection) (Acute) - Plan: Comment:: Failed induction of labor, with failure to progress Cervix 5cm dilated at 4am and only changed 1 cm all day in spite of adequate MVU with contractions Patient and significant other counseled for primary c section Will proceed to OR
--- NOTE | 2022-04-19 18:33 | HMH.OPNOTE ---
Date of procedure: 04/19/22 Pre-op Diagnosis:: 1. 38 11/19 2. Mild Pre-eclampsia 3. Failure to progress in labor Post-op Diagnosis:: Same Procedure performed:: Primary Low Transverse C Section Surgeon:: Peggy Bronson MD Income Tax Investigator(s):: Jimmy Parham MD MOTOR POOL DRIVER:: Aguila Aguillon Anesthesia: epidural Estimated blood loss (mL): 600 Operative findings:: vigorous male in vertex presentation normal uterus, fallopian tubes and ovaries Operative note:: The patient was taken to the OR and adequate epidural anesthesia confirmed. She was prepped and draped in normal sterile fashion. A pfannenstiel skin incision was made with the scalpel and carried down to the fascia. The fascia was incised in the midline and sharply dissected off the rectus muscles. The muscles were in the midline and the peritoneum was entered sharply and extended bluntly. The Familia-O self retaining retractor was placed in the abdomen and a bladder flap was created. The uterus was incised in the lower uterine segment in a transverse fashion and extended bluntly. Amniotomy was performed and clear fluid noted. The infant was delivered in controlled fashion, without complication or shoulder dystocia. The infant was vigorous at and handed to awaiting watch technician and nursing staff for evaluation after the umbilical cord was clamped and cut. Cord blood was collected and a cord segment was preserved. The placenta was manually extracted and noted to be intact. The uterus was repaired with 0-vicryl in a running/locked fashion. A second layer was placed for hemostasis. The bladder flap was closed with 2-0 vicryl in a running fashion. The peritoneum was closed with 2-0 vicryl in a running fashion. The fascia was closed with #1 vicryl in a running fashion. The subcutaneous fat was closed with 2-0 vicryl in an interrupted fashion. The skin was closed with 2-0 stratafix in a subcuticular fashion. The patient tolerated the procedure well. Sponge, lap, needle and instrument counts were correct x 2. TAP block was placed by anesthesia after conclusion of the procedure. She was taken to PACU awake and in stable condition. EBL: 600cc. Condition: stable Disposition: PACU Specimens:: Placenta Complications:: None
--- NOTE | 2022-04-19 18:50 | HMH.ANESI ---
[facility] Anesthesia Record Part I Intake, IV Amount: 1,000 Estimated blood loss (mL): 600 Urine output (mL): 200 Blood Pressure: 132/80 SaO2: 98 Pulse Rate: 83 Respiratory Rate: 16 Temperature: 99.3 F Patient is:: Awake, Stable Stable to PACU at:: 18:40
[2022-04-20 00:08] VITALS: RESP 18
--- NOTE | 2022-04-20 07:42 | HMH.ACPN2 ---
Internal Medicine - PN: Subj *Date: 04/20/22 *Time: 07:42 Interval history: POD #1 primary c section No unusual complaints Tolerating regular diet without nausea/vomiting Lochia appropriate Postop labs pending this morning Ambulating and voiding without difficulty Pain control sufficient Exam Vital signs and Labs for Last 24 Hours: Temp Pulse Resp BP Pulse Ox 98.3 F 77 18 115/76 100 04/19/22 19:10 04/19/22 19:10 04/20/22 00:08 04/19/22 19:10 04/19/22 19:10 I & O for Last 24 hours: Intake & Output 04/17/22 04/18/22 04/19/22 04/20/22 11:59 11:59 11:59 11:59 Intake Total 1000 / 1000 Output Total 500 / 500 Balance 500 / 500 Weight 241 lb Narrative: CONSTITUTIONAL: no acute distress HEENT: mucous membranes moist PULMONARY: breathing unlabored without audible wheezes CV: no tachycardia or visible JVD; normal LE peripheral pulses ABD: soft, ND; appropriately tender but no rebound/guarding : fundus firm below umbilicus SKIN: incision well approximated with no drainage, erythema or induration EXT: 1+ edema LEs NEURO: alert/oriented, no altered mental status PSYCH: appropriate mood and demeanor Assessment and Plan (1) 38 weeks gestation of Status: Acute Category: Medical Code(s): Z3A.38 - 38 weeks gestation of (2) Pre-eclampsia in third trimester Status: Acute Category: Medical Code(s): O14.93 - Unspecified pre-eclampsia, third trimester (3) Obesity, Class II, BMI 35-39.9, no comorbidity Status: Acute Category: Medical Code(s): E66.9 - Obesity, unspecified (4) S/P Status: Acute Category: Surgical Code(s): Z98.891 - History of uterine scar from previous surgery - Assessment and plan all Dx Assessment and Plan for all problems:: Routine postop/ care Postop labs pending but clinically stable Advance care as tolerated Possible discharge home tomorrow
[2022-04-20 09:48] LABS: Hematocrit 31.1 % (37.0-47.0); Hemoglobin 10.7 g/dL (12.2-16.2)
--- NOTE | 2022-04-20 10:02 | HMH.ANESII ---
[facility] Anesthesia Record Part II Discharge Time: 19:10 Destination: Obstetric PACU nurse assessment reviewed?: Yes Patient Condition:: Good Anesthesia Complications:: None Swallowing reflex intact?: Yes Cyanosis?: No Blood Pressure: 115/76 Pulse Rate: 77 Temperature: 98.3 F Mental Status: Alert & Oriented Pain level:: 0 Nausea and/or vomitting:: None Intake, IV Amount: 0
[2022-04-20 10:03] VITALS: BP 115/76; PULSE 77; TEMP 36.8
--- NOTE | 2022-04-21 10:27 | HMH.DCSUM ---
General - General Admission date:: 04/18/22 Discharge date: 04/21/22 HPI HPI: 21 yo G1 @ 38 wks Scheduled induction of labor for pre-eclampsia Favorable cervix 3cm with reassuring testing Labs and BP in mild pre-eclampsia range Hospital Course Hospital Course: course uncomplicated BP stable after delivery Discharged home on POD #2 in stable condition She is tolerating a regular diet She is ambulating and voiding without difficulty Lochia is appropriate and pain control sufficient Rhogam Administration: Not Indicated Objective Vital signs: Temp Pulse Resp BP Pulse Ox 98.3 F 77 18 115/76 100 04/20/22 10:03 04/20/22 10:03 04/20/22 00:08 04/20/22 10:03 04/19/22 19:10 Narrative: CONSTITUTIONAL: no acute distress HEENT: mucous membranes moist PULMONARY: breathing unlabored without audible wheezes CV: no tachycardia or visible JVD; normal LE peripheral pulses ABD: soft, ND; appropriately tender but no rebound/guarding : fundus firm below umbilicus SKIN: incision well approximated with no drainage, erythema or induration EXT: 1+ edema LEs NEURO: alert/oriented, no altered mental status PSYCH: appropriate mood and demeanor DS: Diagnosis - Discharge Diagnosis (1) 38 weeks gestation of Status: Acute (2) Pre-eclampsia in third trimester Status: Acute (3) Obesity, Class II, BMI 35-39.9, no comorbidity Status: Acute (4) S/P Status: Acute Discharge Plan - Patient Discharge Instructions ACTIVITY: Continue current activity DIET: regular diet Additional Instructions: NOTHING IN VAGINA FOR 6 WEEKS NO HEAVY LIFTING OR STRENUOUS ACTIVITY FOLLOW-UP WITH DR. RIOS ON Patient Instructions: Depression, Hemorrhage, DI for , DI for Pre-eclampsia, [facility] Post Discharge Instructions, Preventing the Spread of Coronavirus Discharge Instructions - Follow up Plan Disposition: Home, Self-Care Condition at discharge:: Stable Home Medications: Home Medications Medication Instructions Recorded Confirmed Type vit no.95-ferrous 1 tab PO DAILY 10/12/21 04/18/22 History fumarate 28 mg-folic acid 800 mcg tablet Ibuprofen [Motrin 400mg 800 mg PO Q6HP PRN #40 tab 04/21/22 Rx tablet] Oxycodone HCl [OxyIR 5mg tablet] 5 mg PO Q6HP PRN #24 tab 04/21/22 Rx Prescriptions/Medication Reconciliation: New Acetaminophen [Acetaminophen 325mg tab] 650 mg PO Q4HP PRN tab PRN Reason: Mild Pain with NSAID Oxycodone HCl [OxyIR 5mg tablet] 5 mg PO Q6HP PRN #24 tab PRN Reason: Moderate Pain Ibuprofen [Motrin 400mg tablet] 800 mg PO Q6HP PRN #40 tab PRN Reason: Mild To Moderate Pain Continued vit no.95-ferrous fumarate 28 mg-folic acid 800 mcg tablet 1 tab PO DAILY - Problem Reconciliation Problems Reviewed?: Yes
== END 2022-04-21 12:30 | disposition home or self-care (01) | DRG 788 ==
PROVIDERS: Admitting Provider Obstetrics & Gynecology; Visit Provider Obstetrics & Gynecology
PROC: 10D00Z1 Extraction of Products of Conception, Low, Open Approach (ICD-10-PCS; CPT 59514; principal; 2022-04-19 17:30)
DX: O14.03 Mild to moderate pre-eclampsia, third trimester (principal); Z3A.38 38 weeks gestation of pregnancy; O62.0 Primary inadequate contractions; Z37.0 Single live birth
CPT/HCPCS: 59514; 36415; 59025; 80048; 80053; 84450; 84460; 84550; 85014; 85018; 85025; 85378; 85384; 85610; 85730; 86850; 94761; C1758; C9290; C9803; G0283; J2405; U0003; U0005

== ENCOUNTER 2022-05-17 11:07 | Emergency (ER) | payer MEDICAID, SELFPAY ==
[2022-05-17 11:08] VITALS: BP 133/68; PULSE 68; RESP 18; TEMP 36.8; O2SAT 98; BMI 35.6
--- NOTE | 2022-05-17 11:15 | HMH.EDABDPAI ---
ED Disposition Clinical Impression: Abdominal pain Qualifiers: Abdominal location: epigastric Qualified Code(s): R10.13 - Epigastric pain Vomiting Qualifiers: Vomiting type: unspecified Nausea presence: with nausea Qualified Code(s): R11.2 - Nausea with vomiting, unspecified Disposition: Home, Self-Care Condition on Discharge: Good Additional Instructions: Follow-up with your primary care doctor as needed. Return to the emergency department immediately if you feel worse in any way. Referrals: Provider,Referral, [Primary Care Provider] - - Critical Care Critical Care Time: No Attestation: On 05/17/22, the high probability of a clinically significant, sudden or life threatening deterioration of the following system(s) required my full and direct attention, intervention and personal management. The time I documented below is in addition to time spent performing reported procedures but includes the following listed in this critical care notation. Medical Decision Making - Anuj Inquiry Pt receiving controlled substance: No Vital Signs: 05/17/22 11:08 Temperature 98.2 F Temperature Source Oral Pulse Rate [Brachial] 68 Respiratory Rate 18 Blood Pressure [Right Arm] 133/68 Blood Pressure Mean [Right Arm] 89 Blood Pressure Source [Right Arm] Automatic Cuff Blood Pressure Position [Right Arm] Sitting 02 Sat by Pulse Oximetry 98 - Lab Data Lab results reviewed: Yes: I reviewed the patient's lab results. Lab Results 05/17/22 11:11: Urine Color Yellow, Urine Appearance Clear, Urine pH 6.0, Ur Specific Evans 1.020, Urine Protein Negative, Urine Glucose (UA) Negative, Urine Ketones Negative, Urine Blood 2+, Urine Nitrate Negative, Urine Bilirubin Negative, Urine Urobilinogen 1.0, Ur Leukocyte Esterase 1+ A, Urine RBC 10-20, Urine WBC 3-5, Ur Squamous Epith Cells Occasional, Urine Bacteria 2+ 05/17/22 11:38: WBC 5.6, RBC 4.51, Hgb 11.8 L, Hct 34.7 L, MCV 77.1 L, MCH 26.1 L, MCHC 33.9, RDW 14.7, Plt Count 283, MPV 7.2 L, Neut % (Auto) 64.8, Lymph % (Auto) 25.1, [place] % (Auto) 5.9, Eos % (Auto) 3.4, Baso % (Auto) 0.7, Neut # (Auto) 3.7, Lymph # (Auto) 1.4, [place] # (Auto) 0.3, Eos # (Auto) 0.2, Baso # (Auto) 0.0 05/17/22 11:38: Sodium 139, Potassium 4.3, Chloride 105, Carbon Dioxide 26, Anion Gap 12.3, BUN 9, Creatinine 0.70, Estimated Creat Clear 196, Estimated GFR 107, Est GFR ( Amer) 129, Glucose 98, Calcium 9.1, Total Bilirubin 0.8, AST 42 H, ALT 27, Alkaline Phosphatase 78, Total Protein 7.7, Albumin 4.5, Globulin 3.2, Albumin/Globulin Ratio 1.4, Lipase 118 Result diagrams: 05/17/22 11:38 05/17/22 11:38 Orders (Tests/Meds): ORDERS Category Date Time Status Urine Culture Stat Micro 05/17/22 11:11 Received Medical Decision Narrative: The patient presents to the emergency department complaining of epigastric pain followed by vomiting this morning. This pain resolved completely and spontaneously after vomiting. The patient's physical examination is unremarkable. Her laboratory work-up is also unremarkable. I feel that the patient can be safely discharged home. Abdominal Pain HPI - General Stated Complaint: post op 4 weeks, abd pain Time Seen by Provider: 05/17/22 11:15 Mode of Arrival: Ambulatory Source of Information: Patient - History of Present Illness HPI narrative: The patient presents to the emergency department complaining of epigastric pain that began this morning when she woke up. She then felt nauseous and vomited. Since then the pain has completely resolved. The patient has no complaints at this time. Patient is approximately 1 month post . She has no complaints in her lower abdomen. MD complaint: abdominal pain - Related Data Home Medications Medication Instructions Recorded Confirmed vit no.95-ferrous 1 tab PO DAILY 10/12/21 04/28/22 fumarate 28 mg-folic acid 800 mcg tablet Previous Rx's Medication Instructions Recorded Aceta
[2022-05-17 11:23] VITALS: BMI 35.6
[2022-05-17 11:27] LABS: Microscopic, Urine URINE MICROSCOPIC (MICROSCOPIC)
[2022-05-17 11:37] LABS: Appearance,Urine CLEAR (Clear); Bilirubin,Urine Negative (Negative); Blood, Urine 2+ (Negative); Color,Urine YELLOW (Yellow); Glucose,Urine (UA) Negative (Negative); Ketones,Urine Negative (Negative); Leukocyte Esterase,Urine 1+ (Negative); Nitrate,Urine Negative (Negative); Protein,Urine Negative (Negative)
[2022-05-17 11:45] LABS: Basophils % 0.7 % (0.1-2.0); Eosinophils # 0.2 K/mm3 (0.0-0.4); Eosinophils % 3.4 % (0.1-12.0); Hematocrit 34.7 % (37.0-47.0); Hemoglobin 11.8 g/dL (12.2-16.2); Lymphocytes # 1.4 K/mm3 (0.7-4.5); Lymphocytes % 25.1 % (10-50); Mean Corpuscular HGB Conc 33.9 g/dL (31.8-35.4); Mean Corpuscular Hemoglobin 26.1 pg (27.0-31.2); Mean Corpuscular Volume 77.1 fl (81-99); Mean Platelet Volume 7.2 fl (7.4-10.4); Monocytes # 0.3 K/mm3 (0.1-1.0); Monocytes % 5.9 % (1.7-9.3); Neutrophils # 3.7 K/mm3 (1.8-7.8); Neutrophils % 64.8 % (37.0-80.0); Platelet Count 283 K/mm3 (142-424); Red Blood Count 4.51 M/mm3 (4.20-5.40); Red Cell Distribution Width 14.7 % (11.5-17.5); White Blood Count 5.6 K/mm3 (4.5-13.0)
[2022-05-17 11:51] LABS: Chloride 105 mmol/L (98-107)
[2022-05-17 11:52] LABS: Potassium 4.3 mmoL/L (3.5-5.1); Sodium 139 mmol/L (136-145)
[2022-05-17 11:54] LABS: Alanine Aminotransferase 27 U/L (12-78); Aspartate Amino Transferase 42 U/L (14-36); Bilirubin,Total 0.8 mg/dl (0.2-1.3); Blood Urea Nitrogen 9 mg/dl (7-17); Creatinine Clearance Estimated 196 mL/min (50-200); Estimated Glomerular Filt Rate 107 ml/min (>60); GFR (African American) 129 ML/MIN (>60)
[2022-05-17 11:55] LABS: Albumin Level 4.5 g/dl (3.5-5.0); Albumin/Globulin Ratio 1.4 (1.1-1.8); Alkaline Phosphatase 78 U/L (38-126); Anion Gap 12.3 mEq/L (5-15); Calcium 9.1 mg/dl (8.4-10.2); Carbon Dioxide 26 mmol/L (22.0-30.0); Globulin 3.2 g/dL (1.3-3.2); Glucose 98 mg/dl (74-100); Lipase 118 U/L (23-300); Total Protein,Serum 7.7 g/dl (6.3-8.2)
[2022-05-17 11:57] LABS: Bacteria,Urine 2+ /lpf; Squamous Epithelial Cell,Urine Occasional #/hpf (0-5)
[2022-05-17 12:45] VITALS: BP 122/70; PULSE 80; RESP 16; TEMP 36.8; O2SAT 98
== END 2022-05-17 12:46 | disposition home or self-care (01) ==
PROVIDERS: Emergency Provider Emergency Medicine
DX: R10.13 Epigastric pain (principal); R11.2 Nausea with vomiting, unspecified
CPT/HCPCS: 80053; 81001; 83690; 85025; 87086; 99282

== ENCOUNTER 2022-08-28 23:20 | Emergency (ER) | payer MEDICAID, SELFPAY ==
[2022-08-29 00:25] VITALS: BP 0/0; PULSE 0; RESP 0; TEMP -17.7; TEMP 0; O2SAT 0
== END 2022-08-29 00:26 | disposition left against medical advice (07) ==
LOC: ER 08-29 00:17
PROVIDERS: Emergency Provider Emergency Medicine
DX: R10.9 Unspecified abdominal pain (principal); R11.10 Vomiting, unspecified; Z79.1 Long term (current) use of non-steroidal anti-inflammatories (NSAID); Z79.3 Long term (current) use of hormonal contraceptives; Z53.21 Procedure and treatment not carried out due to patient leaving prior to being seen by health care provider
CPT/HCPCS: 99211

== ENCOUNTER 2022-10-25 18:03 | Emergency (ER) | payer MEDICAID, SELFPAY ==
[2022-10-25 18:05] VITALS: BP 132/57; PULSE 68; RESP 16; TEMP 36.7; O2SAT 100; BMI 35.7
--- NOTE | 2022-10-25 20:00 | XR_ITS ---
PROCEDURE INFORMATION: Exam: XR Right Knee Exam date and time: 10/25/2022 8:02 PM Age: 21 years old Clinical indication: Pain; Knee; Right; Patient HX: Fell in mud. ; Additional info: Fall TECHNIQUE: Imaging protocol: Radiologic exam of the Right knee. Views: 3 views. COMPARISON: No relevant prior studies available. FINDINGS: Bones/joints: No acute fracture or dislocation. Soft tissues: Normal. IMPRESSION: No acute fracture or dislocation.
--- NOTE | 2022-10-25 20:39 | HMH.EDLOEX ---
Discharge Plan Disposition Patient Disposition: Home, Self-Care Prescriptions Prescriptions: New meloxicam 15 mg tablet 15 mg PO DAILY Qty: 10 0RF No Action PNV cmb#95-ferrous fumarate-FA 28 mg iron- 800 mcg tablet 1 tab PO DAILY norgestimate-ethinyl estradiol [Sprintec (28)] 0.25-35 mg-mcg tablet 1 tab PO DAILY Qty: 28 6RF acetaminophen 325 MG tablet 650 mg PO Q4HP PRN (Reason: Mild Pain with NSAID) 0RF ibuprofen 400 MG tablet 800 mg PO Q6HP PRN (Reason: Mild To Moderate Pain) Qty: 40 0RF Referrals Follow up/Referrals: Provider,Patsy, [Primary Care Provider] - See instructions Aristides Llanes JR, MD [Physician] - See instructions Timoteo Cruz DO [Staff Physician] - See instructions Clinical Impressions Clinical Impression: Acute internal derangement of knee Stand Alone Forms Stand Alone Forms: Work/School Release Instructions Patient Instructions: Sprain Discharge ED Provider: Ariel Carpenter Lower Extremity Injury HPI General Chief Complaint: Extremity Injury, Lower Stated Complaint: AO 10/25 @HOME @1745 FELL RIGHT KNEE Time Seen by Provider: 10/25/22 20:40 Mode of Arrival: Wheelchair Source of Information: Patient and Medical Record Limitations: No Limitations Description of Symptoms (Recalled from ER Triage Doc. by RN): pt states was walking and rt knee gave out and she fell. pt c/o rt knee pain History of Present Illness HPI Narrative: pt with episodes of rt knee instability and pain and dec wt bearing complaint: knee injury Onset (ago): hour(s) Injury: Right: knee Type of Injury: unknown Place: home Severity: moderate Exacerbating factors: weight bearing, movement and palpation Context: walking Associated symptoms: swelling and unable to bear weight Other symptoms: none Related Data Home Medications Medication Instructions Recorded Confirmed vit no.95-ferrous 1 tab PO DAILY Supplement 10/12/21 05/26/22 fumarate 28 mg-folic acid 800 mcg tablet Previous Rx's Medication Instructions Recorded acetaminophen 325 mg tablet 650 mg PO Q4HP PRN Mild Pain with 04/21/22 NSAID ibuprofen 400 mg tablet 800 mg PO Q6HP PRN Mild To 04/21/22 Moderate Pain #40 tabs norgestimate 0.25 mg-ethinyl 1 tab PO DAILY #28 tabs 05/26/22 estradiol 35 mcg tablet (Sprintec (28)) meloxicam 15 mg tablet 15 mg PO DAILY #10 tabs 10/25/22 Allergies Allergy/AdvReac Type Severity Reaction Status Date / Time No Known Allergies Allergy Verified 05/26/22 10:36 [facility] Disclaimer: The information contained in this section may have been updated after the patient was seen, as this information can be updated by other users. Social History Smoking Status: Never smoker alcohol intake: never substance use type: denies use current occupational status: other Travel in the last 8 weeks: None ROS Obtained: Yes All systems reviewed & no additional complaints except as documented Physical Exam General General appearance: alert Head Head exam: normocephalic Eye Eye exam: Present PERRL and EOMI ENT ENT exam: Present mucous membranes moist Neck Neck exam: Absent trachea midline Respiratory Respiratory exam: Absent respiratory distress Cardiovascular Cardiovascular exam: Present regular rate Expanded Lower Extremity Exam Right: Hip/Pelvis exam: Present pelvis stable Knee exam: Present tenderness, effusion and knee extension intact; Absent full ROM Lower leg exam: Absent Homans' sign Neurovascular/Tendon exam: Absent pulse deficit or sensory deficit Neurological Exam Neurological exam: Present alert, oriented X3 and CN II-XII intact; Absent motor sensory deficit Psychiatric Psychiatric exam: Present normal affect Skin Skin exam: Absent rash Medical Decision Making Medical Records Medical records reviewed: Yes I reviewed the patient's medical records. Anuj Inquiry Pt receiving controlled substance: No
[2022-10-25 20:41] VITALS: BP 133/71; PULSE 80; RESP 18; TEMP 36.8; O2SAT 98
== END 2022-10-25 21:02 | disposition home or self-care (01) ==
PROVIDERS: Emergency Provider Emergency Medicine
DX: M23.91 Unspecified internal derangement of right knee (principal)
CPT/HCPCS: 73562; 99283

== ENCOUNTER → 2023-03-21 15:00 | Outpatient (CLI) | payer MEDICAID, SELFPAY ==
[2023-03-21 15:27] LABS: Basophils % 0.5 % (0.1-2.0); Eosinophils # 0.1 K/mm3 (0.0-0.4); Eosinophils % 1.6 % (0.1-12.0); Hematocrit 40.9 % (37.0-47.0); Hemoglobin 13.3 g/dL (12.2-16.2); Lymphocytes # 1.5 K/mm3 (0.7-4.5); Lymphocytes % 26.3 % (10-50); Mean Corpuscular HGB Conc 32.4 g/dL (31.8-35.4); Mean Corpuscular Hemoglobin 27.2 pg (27.0-31.2); Monocytes # 0.3 K/mm3 (0.1-1.0); Monocytes % 5.4 % (1.7-9.3); Neutrophils # 3.7 K/mm3 (1.8-7.8); Neutrophils % 66.2 % (37.0-80.0); Platelet Count 255 K/mm3 (142-424); Red Blood Count 4.88 M/mm3 (4.20-5.40); Red Cell Distribution Width 13.9 % (11.5-17.5); White Blood Count 5.6 K/mm3 (4.8-10.8)
[2023-03-23 10:08] LABS: Rubella Antibodies, IgG 8.56 index (Immune >0.99)
[2023-03-23 11:26] LABS: Rapid Plasma Reagin Ab Titer Non Reactive (NonRea<1:1)
[2023-04-01 20:33] LABS: HIV Screen 4th Generation wRfx Non Reactive; Hepatitis B Surface Antigen Negative; Hepatitis C Antibody Non Reactive
== END ==
PROVIDERS: Visit Provider Obstetrics & Gynecology
DX: Z34.90 Encounter for supervision of normal pregnancy, unspecified, unspecified trimester (principal)
CPT/HCPCS: 36415; 85025; 86593; 86703; 86762; 86850; 87340; 87380; G0432

== ENCOUNTER → 2023-06-02 12:45 | Outpatient (CLI) | payer MEDICAID, SELFPAY ==
--- NOTE | 2023-06-02 12:45 | US_ITS ---
PROCEDURE: US OB /MATERNAL DETAIL CLINICAL INDICATION: 20 week anatomy scan COMPARISON: No exams were available for comparison FINDINGS: Transabdominal sonographic images were obtained of the uterus. From her established due date she is 20 weeks 3 days. Single viable intrauterine gestation. Breech position. Placenta: Posteriorplacenta grade 1. There is average amount fluid. The cervix appears satisfactory. Closed and measuring 3.8 cm in length. Complete survey performed and was unremarkable on the submitted images as in PACS. No discrete anomalies identified on survey imaging by technologist. Active fetus. Three-vessel cord with satisfactory umbilical cord insertion. 4- chamber heart noted. LVOT, RVOT, aortic arch appear normal. Survey of brain & ventricles Unremarkable. Thalamus, cerebellum, cisterna magna, choroid plexus appear normal. Face and neck survey unremarkable. Profile, nasion, lips and nose appear normal. Diaphragm and chest views unremarkable. Abdomen: Both kidneys noted and unremarkable. Stomach and bladder noted and satisfactory. Spine: Survey of the spine satisfactory with no anomalies identified nor imaged. Upper, thoracic, lower spine appear normal. Both arms and legs noted. Amniotic Fluid: Adequate. Measurements: Average ultrasound age 19weeks 6days. Estimated due date by ultrasound age 1210/21/2023. Estimated weight 325g BPD = 19weeks 6days OFD = 19weeks 6days HC = 19weeks 1day AC = 20weeks 1day FL = 20weeks 2days Growth Percentile= 23 Heart Rate = 142bpm Cerebellum = 20weeks Humerus = 20weeks 2days HC/AC is 1.11 CI is 0.79 FL/BPD is 0.71 FL/AC is 0.22 IMPRESSION: 1. Viable fetus in the breech presentation with a posterior placenta grade 1. 2. Anatomical survey appears normal. 3. Size and dates are congruent. Dictated by: Jimmy Parham MD 06/03/2023 09:26 Jimmy Parham MD in [place] 06/03/2023 09:26
== END ==
PROVIDERS: PCP Obstetrics & Gynecology; Visit Provider Obstetrics & Gynecology
DX: Z34.92 Encounter for supervision of normal pregnancy, unspecified, second trimester (principal); Z3A.20 20 weeks gestation of pregnancy
CPT/HCPCS: 76811

== ENCOUNTER → 2023-07-17 09:50 | Outpatient (CLI) | payer MEDICAID, SELFPAY ==
[2023-07-17 10:21] LABS: Basophils % 0.3 % (0.1-2.0); Eosinophils # 0.1 K/mm3 (0.0-0.4); Eosinophils % 1.3 % (0.1-12.0); Hemoglobin 12.8 g/dL (12.2-16.2); Lymphocytes # 1.4 K/mm3 (0.7-4.5); Lymphocytes % 14.8 % (10-50); Mean Corpuscular HGB Conc 32.8 g/dL (31.8-35.4); Mean Corpuscular Hemoglobin 27.8 pg (27.0-31.2); Mean Corpuscular Volume 84.8 fl (81-99); Mean Platelet Volume 8.5 fl (7.4-10.4); Monocytes # 0.5 K/mm3 (0.1-1.0); Monocytes % 4.8 % (1.7-9.3); Neutrophils # 7.7 K/mm3 (1.8-7.8); Neutrophils % 78.8 % (37.0-80.0); Platelet Count 242 K/mm3 (142-424); White Blood Count 9.7 K/mm3 (4.8-10.8)
[2023-07-17 10:26] LABS: Benzodiazepines Screen,Urine Negative ng/ml (<200)
[2023-07-17 10:27] LABS: Amphetamine/Metha Screen,Urine Negative ng/ml (<1000)
[2023-07-17 10:28] LABS: Barbiturates Screen,Urine Negative ng/ml (<200); Methadone Screen,Urine Negative ng/ml (<300)
[2023-07-17 10:29] LABS: Cannabinoid Screen,Urine Negative ng/ml (<50)
[2023-07-17 10:30] LABS: Cocaine Screen,Urine Negative ng/ml (<300)
[2023-07-17 10:31] LABS: Opiate Screen,Urine Negative ng/ml (<300); Phencyclidine Screen,Urine Negative ng/ml (<25)
[2023-07-17 10:49] LABS: Glucose,Fasting 88 mg/dl (74-100)
[2023-07-17 11:53] LABS: Glucose 1 Hour 136 mg/dL (74-100)
== END ==
PROVIDERS: Visit Provider Obstetrics & Gynecology
DX: Z34.92 Encounter for supervision of normal pregnancy, unspecified, second trimester (principal); Z3A.26 26 weeks gestation of pregnancy
CPT/HCPCS: 36415; 80305; 82951; 85025

== ENCOUNTER → 2023-07-24 08:29 | Outpatient (CLI) | payer MEDICAID, SELFPAY ==
[2023-07-24 09:15] LABS: Glucose,Fasting 83 mg/dl (74-100)
[2023-07-24 10:26] LABS: Glucose 1 Hour 144 mg/dL (74-100)
[2023-07-24 11:10] LABS: Glucose 2 Hour 166 mg/dL (74-100)
[2023-07-24 12:28] LABS: Glucose 3 Hour 105 mg/dL (74-100)
== END ==
PROVIDERS: Visit Provider Obstetrics & Gynecology
DX: Z34.93 Encounter for supervision of normal pregnancy, unspecified, third trimester (principal); Z3A.28 28 weeks gestation of pregnancy
CPT/HCPCS: 36415; 82951

== ENCOUNTER → 2023-09-08 09:48 | Outpatient (CLI) | payer MEDICAID, SELFPAY ==
--- NOTE | 2023-09-08 09:48 | US_ITS ---
PROCEDURE: US OB BIOPHYSICAL PROFILE CLINICAL INDICATION: maternal obesity affecting / [place] COMPARISON: Anatomy ultrasound June 02, 2023 FINDINGS: Transabdominal sonographic images of the uterus were obtained. From her established due date she is 34weeks 3days. The following parameters are obtained: Viable fetus in the cephalic presentation with a fundal placenta grade 1. Average ultrasound age is 34weeks 3days. Estimated due date by ultrasound is 10/17/2023. Estimated weight is 5lb 2.07oz. heart rate: 135bpm bpm. BPD: 33weeks 1day OFD: 33weeks 1day HC: 34 weeks 5 days AC: 33 weeks 4 days FL: 34 weeks 3 days HC/AC: 1.05 Cephalic index: 0.82 FL/BPD: 0.77 FL/AC: 0.23 32 percentile Amniotic fluid index: 8.56cm Qualitative AFV: 2 breathing movements: 2 Gross body movements: 2 Tone: 2 Biophysical profile score: 8 No obvious anomalies evident.Four chamber view, three-vessel cord appear normal. IMPRESSION: 1. Viable fetus in the cephalic presentation with a fundal placenta grade 2. 2. The fluid is within normal limits with amniotic fluid index of 8.56 cm. 3. Biophysical profile is 8/8 with good breathing movement seen. 4. biometry is consistent with the dates. Dictated by: Jimmy Parham MD 09/11/2023 08:11 Jimmy Parham MD in OV 09/11/2023 08:11
== END ==
PROVIDERS: PCP Obstetrics & Gynecology; Visit Provider Obstetrics & Gynecology
DX: O28.8 Other abnormal findings on antenatal screening of mother (principal); O99.213 Obesity complicating pregnancy, third trimester; Z3A.35 35 weeks gestation of pregnancy
CPT/HCPCS: 76816; 76819

== ENCOUNTER 2023-10-11 04:53 | Inpatient (IN) | payer MEDICAID, SELFPAY ==
[2023-10-11] VITALS (16 sets, daily range): BP systolic 107–136; BP diastolic 61–88; PULSE 67–86; RESP 16–18; TEMP 36.4–37.2; O2SAT 98–100; BMI 37.0
[2023-10-11 05:51] LABS: Microscopic, Urine URINE MICROSCOPIC (MICROSCOPIC)
[2023-10-11 05:55] LABS: Basophils % 0.2 % (0.1-2.0); Eosinophils # 0.1 K/mm3 (0.0-0.4); Eosinophils % 0.9 % (0.1-12.0); Hemoglobin 12.9 g/dL (12.2-16.2); Lymphocytes % 24.3 % (10-50); Mean Corpuscular HGB Conc 33.1 g/dL (31.8-35.4); Mean Corpuscular Hemoglobin 26.1 pg (27.0-31.2); Mean Corpuscular Volume 78.8 fl (81-99); Mean Platelet Volume 9.8 fl (7.4-10.4); Monocytes # 0.4 K/mm3 (0.1-1.0); Monocytes % 5.3 % (1.7-9.3); Neutrophils # 5.6 K/mm3 (1.8-7.8); Neutrophils % 69.3 % (37.0-80.0); Platelet Count 205 K/mm3 (142-424); Red Blood Count 4.94 M/mm3 (4.20-5.40); Red Cell Distribution Width 15.8 % (11.5-17.5); White Blood Count 8.1 K/mm3 (4.8-10.8)
[2023-10-11 06:26] LABS: Chloride 104 mmol/L (98-107); Potassium 4.1 mmoL/L (3.5-5.1); Sodium 135 mmol/L (136-145)
[2023-10-11 06:28] LABS: Blood Urea Nitrogen 5 mg/dl (7-17); Creatinine Clearance Estimated 284 mL/min (50-200); Estimated Glomerular Filt Rate 156 ml/min (>60); GFR (African American) 188 ML/MIN (>60)
[2023-10-11 06:29] LABS: Alanine Aminotransferase 54 U/L (12-78); Albumin Level 3.7 g/dl (3.5-5.0); Albumin/Globulin Ratio 1.2 (1.1-1.8); Alkaline Phosphatase 151 U/L (38-126); Anion Gap 13.1 mEq/L (5-15); Aspartate Amino Transferase 55 U/L (14-36); Bilirubin,Total 0.7 mg/dl (0.2-1.3); Calcium 8.5 mg/dl (8.4-10.2); Carbon Dioxide 22 mmol/L (22.0-30.0); Globulin 3.2 g/dL (1.3-3.2); Glucose 84 mg/dl (74-100); Total Protein,Serum 6.9 g/dl (6.3-8.2)
[2023-10-11 06:30] LABS: Appearance,Urine CLEAR (Clear); Bilirubin,Urine Negative (Negative); Blood, Urine Negative (Negative); Color,Urine YELLOW (Yellow); Glucose,Urine (UA) Negative (Negative); Ketones,Urine Negative (Negative); Leukocyte Esterase,Urine 2+ (Negative); Nitrate,Urine Negative (Negative); Protein,Urine TRACE (Negative); Specific Gravity, Urine 1.025 (1.005-1.030); Urobilinogen,Urine 0.2 EU/dl (0.2)
[2023-10-11 06:56] LABS: Bacteria,Urine 1+ /lpf
--- NOTE | 2023-10-11 07:21 | EXP.OB.APHP ---
OB - H&P: HPI Antepartum History of Present Illness Chief complaint: Scheduled repeat History of present illness: Ms Iris Davies is a 22 yo at 39w1d who presents to [facility] for scheduled repeat . History of x 1. She has had good care. History of Present Criteria for establishing EDC:: based on 1st trimester US only care: good care Ultrasounds: normal mid trimester US Obstetrical complications: none Medical complications: none Labs Blood type: A (+) positive Rubella: immune RPR/VDRL: nonreactive HBsAG: negative [facility] Disclaimer: The information contained in this section may have been updated after the patient was seen, as this information can be updated by other users. Medical History (Updated 10/11/23 @ 07:24 by Leslie Ham DO) 39 weeks gestation of Abdominal pain History of pre-eclampsia in prior , currently Maternal obesity affecting , antepartum Positive urine drug screen Screening for genetic disease carrier status Vomiting Surgical History History of section Family History Other No significant family history Social History Smoking Status: Never smoker alcohol intake: never substance use type: denies use current occupational status: unemployed Travel in the last 8 weeks: None lives independently: Yes marital status: single number of children: 1 Review of Systems Review of Systems Review of systems:: pertinent systems reviewed and negative unless documented below *Genitourinary Comments: + pelvic pressure, occasional shooting pains in her vagina Meds Home Medications and Allergies Home Medications Medication Instructions Recorded Confirmed Type promethazine 25 mg tablet 25 mg PO Q6H PRN nausea and 03/01/23 10/11/23 Rx vomiting #20 tabs aspirin 81 mg tablet,delayed 81 mg PO DAILY 08/15/23 10/11/23 History release (Adult Low Dose Aspirin) New Prescriptions to Start Prescriptions: Allergies Allergy/AdvReac Type Severity Reaction Status Date / Time No Known Allergies Allergy Verified 10/09/23 09:20 OB - H&P: Exam Physical Exam Vital signs: Temp Pulse Resp BP Pulse Ox O2 Del Method 98.9 F 80 16 117/70 100 Room Air 10/11/23 05:15 10/11/23 05:15 10/11/23 05:15 10/11/23 05:15 10/11/23 05:15 10/11/23 05:15 Constitutional no acute distress and cooperative Routine HEENT Exam Head: Present normocephalic and atraumatic Eye: Absent conjunctivae pink ENT: Present mucous membranes moist Routine Neck Exam Present full ROM Routine Respiratory Exam Present CTA bilaterally and normal respiratory effort Routine Cardiovascular Exam Present RRR Routine Abdominal Exam Present soft (Gravid); Absent tenderness Routine Rectal Exam Patient deferred: visual exam Routine Exam External: Present normal urethra appearance; Absent erythema, tenderness, lesions, lacerations, vulvar erythema or vulvar tenderness Routine Extremities Exam Present full ROM; Absent edema or calf tenderness Routine Neurological Exam Present alert, oriented X3 and moving all extremities Routine Psychiatric Exam Present normal affect and cooperative OB - Results Labs Labs: Short CBC 10/11/23 Range/Units 05:30 WBC 8.1 (4.8-10.8) K/mm3 Hgb 12.9 (12.2-16.2) g/dL Hct 39.0 (37.0-47.0) % Plt Count 205 (142-424) K/mm3 BMP 10/11/23 05:30 Sodium 135 L Potassium 4.1 Chloride 104 Carbon Dioxide 22 BUN 5 L Creatinine 0.50 L Glucose 84 Calcium 8.5 Liver Function 10/11/23 Range/Units 05:30 Total Bilirubin 0.7 (0.2-1.3) mg/dl AST 55 H (14-36) U/L ALT 54 (12-78) U/L Alkaline Phosphatase 151 H (38-126) U/L Albumin 3.7 (3.5-5.0) g/dl
[2023-10-11 08:01] LABS: Cord Blood PH 7.37 (7.35-7.45)
--- NOTE | 2023-10-11 08:59 | P.PNANES_ITS ---
[facility] Disclaimer: The information contained in this section may have been updated after the patient was seen, as this information can be updated by other users. Medical History (Updated 10/11/23 @ 07:24 by Leslie Ham DO) 39 weeks gestation of Abdominal pain History of pre-eclampsia in prior , currently Maternal obesity affecting , antepartum Positive urine drug screen Screening for genetic disease carrier status Vomiting Surgical History History of section Family History Other No significant family history Social History Smoking Status: Never smoker alcohol intake: never substance use type: denies use current occupational status: unemployed Travel in the last 8 weeks: None lives independently: Yes marital status: single number of children: 1 [facility] Anesthesia Checklist Patient Identification Patient Identification: Arm Band Structural Data Admitted From: Home Planned Operative Procedure/s: Repeat C/S Consent for Planned Operative Procedure(s) Verified: Yes Verified Documents: Surgical Consent and History and Physical NPO Status Verified Time NPO: 00:00 Additional verifications Anesthesia Reactions: No Airway Assessment Mallampati Score:: Class II C-Spine Mobility Assessed: Yes TMJ Mobility Assessed: Yes Dentition: Good Dentition Neurological Assessment Level of Consciousness: Awake and Alert Anesthesia Plan Anesthesia Risk discussed: Yes ASA Class: II Anesthesia Type: Spinal (with Bilateral TAP block)
--- NOTE | 2023-10-11 08:59 | EXP.ANES.I ---
[facility] Anesthesia Record Part I Anesthesia Record I Intake, IV Amount: 2,000 Hydration: Adequate Estimated blood loss (mL): 1,000 Urine output (mL): 200 Blood Products used (#): none Blood Pressure: 136/88 SaO2: 99 Pulse Rate: 72 Airway Patency: Patent Respiratory Rate: 16 Temperature: 97.6 F Patient is:: Awake and Stable Stable to PACU at:: 08:45
--- NOTE | 2023-10-11 09:29 | EXP.OP.NOTE ---
Date of procedure: 10/11/23 Pre-op Diagnosis:: 1. IUP at 39w1d 2. History of x 1 3. Maternal obesity 4. History of preeclampsia in prior Post-op Diagnosis:: 1. IUP at 39w1d 2. History of x 1 3. Maternal obesity 4. History of preeclampsia in prior Procedure performed:: Repeat Low Transverse Section Surgeon:: Leslie Ham DO Food Preparation Worker(s):: Radha Olsen MD BOAT ASSEMBLER:: Aguila Aguillon Anesthesia: spinal Estimated blood loss (mL): 1,000 Clinical Note:: Ms Iris Davies is a 22 yo at 39w1d who presents to [facility] for scheduled repeat . History of x 1. She has had good care. Operative findings:: 1. Live female baby, Wayverly, weighing 7 lb 14 oz, APGARs 8, 9 2. Grossly normal appearing uterus, bilateral fallopian tubes and ovaries Operative note:: The risks, benefits and alternatives of the procedure were reviewed with the patient. Informed consent was obtained. Patient was taken to the operating room where spinal anesthesia was placed. The patient received 2 grams of Ancef preoperatively. Patient was placed in dorsal supine position with a leftward tilt. SCDs in place. Briceno catheter had been placed and was draining clear urine prior to the start of the procedure. heart tones were obtained. Patient was then prepped and draped in normal sterile fashion. Allis clamp test was performed to ensure adequate anesthesia. A Pfannenstiel skin incision was made 2 cm above pubic symphysis along previous Pfannenstiel incision scar. This was carried through to underlying layer of fascia. Fascia was incised in midline, extended laterally with Kumar scissors. Superior aspect of fascial incision was grasped with two Brigid clamps, elevated up, and rectus muscle dissected off bluntly and sharply with Kumar scissors. Inferior aspect of fascial incision was grasped with two Brigid clamps, elevated up, and rectus muscle dissected off bluntly and sharply with Kumar scissors. The retcus muscle was then in the midline and the peritoneum was entered bluntly with a digit. Peritoneal incision was then extended superiorly and inferiorly with good visualization of the bladder. Familia retractor was inserted. The lower uterine segment was incised in a transverse fashion. Clear amniotic fluid was noted. Head was delivered without difficulty. Remainder of body was delivered without difficulty. Mouth and nares were bulb suctioned. Spontaneous cry was noted. Delayed cord clamping was performed for 60 seconds. The umbilical cord was clamped and cut. The was handed to awaiting pediatric staff in stable condition. Dr. Mendez was present. Apgars were 8(1 min), 9(5 min). Cord blood was obtained. Gentle traction on the umbilical cord and uterine fundal massage delivered the placenta. Placenta was intact. Uterus was cleared of all clots and debris with a moist laparotomy sponge. Corners of the uterine incision were grasped with Allis clamps. The uterine incision was reapproximated with # 1 Vicryl suture in a running, locked stitch. Second layer of the same stitch was used to imbricate the incision. Hemostasis was noted. Posterior cul-de-sac was cleaned with moist laparotomy sponge. Gutters cleared of all clots and debris with a moist laparotomy sponge. Reinspection of the lower uterine segment demonstrated small amount of oozing. Surgicel powder was applied over uterine incision. Hemostasis was noted. At this point all instruments and sponges were removed from the pelvis.? The peritoneum was grasped with Pepper clamps x 3. The peritoneum was reapproximated with 0 Vicryl suture in a running stitch. The corners of the fascia were grasped with Brigid clamps, and the fascia was reapproximated with two # 1 Vicryl suture overlapped to the right of midline. The subcutaneous tissue was reapproximated with 3-0 Vicryl. Subcutaneous tissue was irrigated with clear return of fluids. The skin was reapproximated with Insorb
--- NOTE | 2023-10-11 09:32 | SUR.PHASEI ---
0845- QBL>1000. notified at this time. No further orders other than normal protocol procedures. 20g iv inserted in left hand, 2 units PRBC's on hold, q5m vitals, no methergine given at this time. 0915- pt in stable condition in rm 280. Detailed report given to belén aranda. Vss, dressings CDI, family at bedside/mother doing skin to skin.
[2023-10-11 11:21] LABS: Benzodiazepines Screen,Urine Negative ng/ml (<200)
[2023-10-11 11:22] LABS: Amphetamine/Metha Screen,Urine Negative ng/ml (<1000)
[2023-10-11 11:23] LABS: Barbiturates Screen,Urine Negative ng/ml (<200); Cannabinoid Screen,Urine Negative ng/ml (<50)
[2023-10-11 11:24] LABS: Cocaine Screen,Urine Negative ng/ml (<300); Methadone Screen,Urine Negative ng/ml (<300)
[2023-10-11 11:25] LABS: Opiate Screen,Urine Negative ng/ml (<300)
[2023-10-11 11:26] LABS: Phencyclidine Screen,Urine Negative ng/ml (<25)
[2023-10-12 04:30] VITALS: BP 134/84; PULSE 83; RESP 17; TEMP 36.6; O2SAT 98
[2023-10-12 07:11] LABS: Basophils % 0.1 % (0.1-2.0); Eosinophils % 0.4 % (0.1-12.0); Hematocrit 33.9 % (37.0-47.0); Hemoglobin 10.9 g/dL (12.2-16.2); Lymphocytes # 1.2 K/mm3 (0.7-4.5); Lymphocytes % 15.5 % (10-50); Mean Corpuscular HGB Conc 32.2 g/dL (31.8-35.4); Mean Corpuscular Hemoglobin 25.8 pg (27.0-31.2); Mean Corpuscular Volume 80.1 fl (81-99); Mean Platelet Volume 10.4 fl (7.4-10.4); Monocytes # 0.3 K/mm3 (0.1-1.0); Monocytes % 4.3 % (1.7-9.3); Neutrophils # 5.9 K/mm3 (1.8-7.8); Neutrophils % 79.6 % (37.0-80.0); Platelet Count 198 K/mm3 (142-424); Red Blood Count 4.23 M/mm3 (4.20-5.40); Red Cell Distribution Width 16.1 % (11.5-17.5); White Blood Count 7.4 K/mm3 (4.8-10.8)
--- NOTE | 2023-10-12 08:11 | P.CONPHA_ITS ---
Pharmacy Intervention Comments: MEDICATION RECONCILIATION COMPLETED ON PATIENT USING EXTERNAL FILL HISTORY FROM PHARMACY AND LIST FROM [facility] OPERATOR OFFICE. -JESSICA CESPEDESD
--- NOTE | 2023-10-12 08:11 | HMH.PHAINT1 ---
Pharmacy Intervention Comments: MEDICATION RECONCILIATION COMPLETED ON PATIENT USING EXTERNAL FILL HISTORY FROM PHARMACY AND LIST FROM [facility]ET[facility] SPECIALIST OFFICE. -JESSICA CESPEDESD
[2023-10-12 08:20] VITALS: BP 112/66; PULSE 81; RESP 18; TEMP 36.5; O2SAT 100
--- NOTE | 2023-10-12 08:30 | EXP.ANES.II ---
[facility] Anesthesia Record Part II Anesthesia Record Part II Discharge Time: 09:15 Destination: Obstetric PACU nurse assessment reviewed?: Yes Patient Condition:: Good Anesthesia Complications:: None Swallowing reflex intact?: Yes Airway Patency: Patent Cyanosis?: No Blood Pressure: 115/81 SaO2: 98 Respiratory Rate: 16 Pulse Rate: 72 Temperature: 97.8 F Mental Status: Alert & Oriented Pain level:: 0 Nausea and/or vomitting:: None Intake, IV Amount: 0 Hydration: Adequate
[2023-10-12 08:31] VITALS: BP 115/81; PULSE 72; RESP 16; TEMP 36.6; O2SAT 98
--- NOTE | 2023-10-12 09:59 | SW/DCPLANNER ---
Addendum entered by Brisa Huber 10/16/23 08:32: Infant cord screen is NEGATIVE. Original Note: I received a consult on this patient regarding THC use during . Patient tested positive for THC on the following dates: 03/09/23, 05/05/23 and 07/03/23. Patient urine drug screen was negative on the following dates: 04/06/23, 07/17/23, 08/29/23 and admission. urine drug screen was negative at admission. Infant female Kenyatta Cabrera was born on 10/11/2022. 's father (Michele Cabrera 06/21/97) was present at the time of my visit. Patient stated that herself, Kenyatta Bautista and other child (Carmen Cabrera 04/19/22) will reside at [address] [place] [address]. Patient's contact number is [phone]. Patient reported no past Social Service involvement. Patient is currently established w/ WIC and is NOT interested in HANDS. Patient stated that she has the following items at home: crib, car seat, clothing, diapers and will be bottle feeding/breast feeding. PED MD will be Dr Mendez and patient stated that she will have transportation to all follow up appointments. Per OB nursing staff patient is appropriate w/ infant. Patient is expected to discharge home today.
--- NOTE | 2023-10-12 12:40 | EXP.DC.SUM ---
General Admission date:: 10/11/23 Discharge date: 10/12/23 HPI HPI HPI: POD # 1 s/p RLTCS Feeling well. Pain controlled. Breast and formula feeding. Lochia is appropriate. Voiding without difficulty and passing flatus. She had a BM. Tolerating regular diet. Denies fever/chills, chest pain and shortness of breath. No headaches, vision changes, lightheadedness/dizziness. Denies swelling. Ambulating well ad corey. Hospital Course Hospital Course Hospital Course: Ms Iris Davies is a 22 yo at 39w1d who presented to [facility] for scheduled repeat . History of x 1. She had good care. She underwent repeat low transverse section on 10/11/23. She delivered a live female baby, Wayverly, weighing 7 lb 14 oz. APGARs 8, 9. EBL 1000 mL. She did well postoperatively/. Pain controlled. Breast and formula feeding. Lochia is appropriate. Voiding without difficulty and passing flatus. She had a BM. Tolerating regular diet. Denies fever/chills, chest pain and shortness of breath. No headaches, vision changes, lightheadedness/dizziness. Denies swelling. Ambulating well ad corey. Vital signs stable, afebrile. Heart regular rate and rhythm. Lungs clear to auscultation. Abdomen soft, nontender. No lower extremity edema. Normal hospital course. She was discharged to home on POD # 1 with instructions to follow-up in the office in 2 weeks. Exam Data for Last 24 hours Vital signs and Labs for Last 24 Hours: Temp Pulse Resp BP Pulse Ox O2 Del Method 97.7 F 81 16 112/66 100 Room Air 10/12/23 08:20 10/12/23 08:20 10/12/23 08:31 10/12/23 08:20 10/12/23 08:20 10/12/23 08:20 Laboratory Results - last 24 hr 10/12/23 06:42: WBC 7.4, RBC 4.23, Hgb 10.9 L, Hct 33.9 L, MCV 80.1 L, MCH 25.8 L, MCHC 32.2, RDW 16.1, Plt Count 198, MPV 10.4, Neut % (Auto) 79.6, Lymph % (Auto) 15.5, [place] % (Auto) 4.3, Eos % (Auto) 0.4, Baso % (Auto) 0.1, Neut # (Auto) 5.9, Lymph # (Auto) 1.2, [place] # (Auto) 0.3, Eos # (Auto) 0.0, Baso # (Auto) 0.0 I & O for Last 24 hours: Intake & Output 10/09/23 10/10/23 10/11/23 10/12/23 23:59 23:59 23:59 23:59 Intake Total 1999 / 1999 0 / 0 Output Total 500 / 500 Balance 1500 / 1500 0 / 0 Weight 223 lb Constitutional Constitutional: no acute distress and cooperative *Routine HEENT Exam Head: Present normocephalic and atraumatic Eye: Absent conjunctivae pink ENT: Present mucous membranes moist *Routine Neck Exam Neck: Present full ROM *Routine Respiratory Exam Respiratory: Present CTA bilaterally and normal respiratory effort *Routine Cardiovascular Exam Cardiovascular: Present RRR *Routine Abdominal Exam Abdominal: Present soft and normoactive bowel sounds; Absent tenderness or distended Comments: Uterine fundus firm and below umbilicus, pfannenstiel incision clean/dry/intact with steri strips in place *Routine Rectal Exam Patient deferred: visual exam *Routine Exam Patient deferred: external exam *Routine Extremities Exam Extremities: Present full ROM; Absent edema or calf tenderness *Routine Neurological Exam Neurological: Present alert, oriented X3 and moving all extremities Routine Psychiatric Exam Psychiatric: Present normal affect and cooperative Results Data Completed and Pending Labs on day of discharge: Labs from last 24 hours 10/12/23 06:42 WBC 7.4 RBC 4.23 Hgb 10.9 L Hct 33.9 L MCV 80.1 L MCH 25.8 L MCHC 32.2 RDW 16.1 Plt Count 198 MPV 10.4 Neut % (Auto) 79.6 Lymph % (Auto) 15.5 [place] % (Auto) 4.3 Eos % (Auto) 0.4 Baso % (Auto) 0.1 Neut # (Auto) 5.9 Lymph # (Auto) 1.2 [place] # (Auto) 0.3 Eos # (Auto) 0.0 Baso # (Auto) 0.0 DS: Diagnosis Discharge Diagnosis (1) 39 weeks gestation of : Status: Acute Code(s): Z3A.39 - 39 weeks gestation of (2) Maternal obesity affecting , antepartum: Status: Acute Code(s): O99.210 - Obesity complicating pre
== END 2023-10-12 13:40 | disposition home or self-care (01) | DRG 787 ==
PROVIDERS: Admitting Provider Obstetrics & Gynecology; Visit Provider Obstetrics & Gynecology
PROC: 10D00Z1 Extraction of Products of Conception, Low, Open Approach (ICD-10-PCS; principal; 2023-10-11 07:30)
DX: O34.211 Maternal care for low transverse scar from previous cesarean delivery (principal); D62 Acute posthemorrhagic anemia; Z3A.39 39 weeks gestation of pregnancy; Z37.0 Single live birth; O99.214 Obesity complicating childbirth; Z23 Encounter for immunization; O90.81 Anemia of the puerperium
CPT/HCPCS: 59514; 36415; 59025; 80053; 80305; 81001; 82800; 85014; 85018; 85025; 86850; 87086; 94761; C9290; G0283; J2405

== ENCOUNTER 2023-12-04 09:58 | Emergency (ER) | payer MEDICAID, SELFPAY ==
[2023-12-04 10:05] VITALS: BP 132/76; PULSE 74; RESP 18; TEMP 37.1; O2SAT 96; BMI 34.8
--- NOTE | 2023-12-04 10:05 | ED_ITS ---
Discharge Plan Disposition Patient Disposition: Home, Self-Care Condition: Good Prescriptions Prescriptions: New ibuprofen [IBU] 800 mg tablet 800 mg PO Q8HP PRN (Reason: Moderate Pain) Qty: 30 0RF amoxicillin [amoxicillin] 875 mg tablet 875 mg PO Q12H Qty: 20 0RF Referrals Follow up/Referrals: Provider,Referral, [Primary Care Provider] - See instructions Activity Restrictions/Add. Instructions Additional Instructions/Restrictions: Take tylenol or ibuprofen for pain or fever. Take the medications as directed. Follow up with your regular doctor. Follow up with your dentist as discussed. GO TO THE ER FOR ANY WORSENING SYMPTOMS Clinical Impressions Clinical Impression: Dental abscess, Pain, dental, Jaw pain Instructions Patient Instructions: Tooth Abscess, DI for Tooth Abscess Discharge ED Provider: Emigdio Rose [facility] General Stated complaint: right jaw pain Time Seen by Provider: 12/04/23 10:05 History of Present Illness Provider Complaint: She states that for the past 1 week she has had worsening right upper jaw dental pain. She has an appointment with her dentist, but its not for the next 2 weeks before she can get in. Related Data Previous Rx's Medication Instructions Recorded amoxicillin 875 mg tablet 875 mg PO Q12H #20 tabs 12/04/23 ibuprofen 800 mg tablet (IBU) 800 mg PO Q8HP PRN Moderate Pain 12/04/23 #30 tabs Allergies Allergy/AdvReac Type Severity Reaction Status Date / Time No Known Allergies Allergy Verified 12/04/23 10:14 [facility] Disclaimer: The information contained in this section may have been updated after the patient was seen, as this information can be updated by other users. Medical History (Updated 12/04/23 @ 10:25 by Emigdio Rose APRN) 39 weeks gestation of Abdominal pain Acute blood loss as cause of postoperative anemia History of pre-eclampsia in prior , currently Maternal obesity affecting , antepartum Positive urine drug screen Screening for genetic disease carrier status Vomiting Surgical History History of section Family History Other No significant family history Social History Smoking Status: Never smoker alcohol intake: never substance use type: denies use current occupational status: unemployed Travel in the last 8 weeks: None lives independently: Yes marital status: single number of children: 1 ROS Obtained: Yes All systems reviewed & no additional complaints except as documented Constitutional Constitutional: Denies chills and Denies fever(s) Eyes Eyes: Denies eye discharge ENT Ears, Nose, Mouth, and Throat: Reports as per HPI, Denies dizziness, Denies otalgia and Denies sore throat Cardiovascular Cardiovascular: Denies chest pain Respiratory Respiratory: Denies shortness of breath, Denies chest congestion, Denies cough, Denies stridor and Denies wheezing Gastrointestinal Gastrointestingal: Denies nausea or vomiting Musculoskeletal Musculoskeletal: Reports system reviewed and no additional complaints, except as documented and Denies arthralgias Integumentary/Breasts Skin/Breast: Denies rash Neurologic Neurologic: Denies dizziness and Denies paresthesias Allergic/Immunologic Allergic/Immunologic: Denies wheezing Physical Exam General General appearance: alert and in no apparent distress Head Head exam: atraumatic, normocephalic and normal inspection Eye Eye exam: Present normal appearance, PERRL and EOMI ENT ENT exam: Present mucous membranes moist, TM's normal bilaterally and normal external ear exam Expanded ENT Exam Mouth exam: Present normal external inspection and drooling; Absent tongue swelling Teeth exam: Present dental caries, fractured tooth #, dental tenderness # and gingival swelling Throat exam: Present normal inspection Neck Neck exam: Present normal inspection, full ROM and trachea midline; Absent meningismus or lymphadenopathy Chest Chest inspection: Present normal inspection and symmetric chest wall rise; Absent tenderness Respiratory Respiratory exam: Present normal lung sounds bilaterally; Absent respiratory distress Cardiovascular Cardiovascular exam: Present regular rate and normal rhythm; Absent JVD Abdominal Exam Abdominal exam: Present soft and normal bowel sounds; Absent distention, tenderness or guarding Extremities Exam Extremities exam: Present normal inspection, full ROM and normal capillary refill; Absent calf tenderness Back Exam Back exam: Present normal inspection; Absent tenderness Neurological Exam Neurological exam: Present alert and oriented X3 Psychiatric Psychiatric exam: Present normal affect and normal mood Skin Skin exam: Present warm, dry, intact and normal color Lymphatic Lymphatic Findings: no adenopathy Medical Decision Making Medical Records Medical records reviewed: No I reviewed the patient's medical records. Anuj Inquiry Pt receiving controlled substance: No
[2023-12-04 10:35] VITALS: BP 132/76; PULSE 74; RESP 18; TEMP 37.1; O2SAT 96
== END 2023-12-04 10:35 | disposition home or self-care (01) ==
PROVIDERS: Emergency Provider Nurse Practitioner Family
DX: K04.7 Periapical abscess without sinus (principal); R68.84 Jaw pain
CPT/HCPCS: 99212; 99214; G0463

== ENCOUNTER 2024-07-11 15:29 | Emergency (ER) | payer MEDICAID, SELFPAY ==
[2024-07-11 15:30] VITALS: BP 121/68; PULSE 73; RESP 18; TEMP 36.9; O2SAT 100; BMI 35.7
--- NOTE | 2024-07-11 15:52 | EXP.UTC ---
Discharge Plan Disposition Patient Disposition: Home, Self-Care Condition: Good Prescriptions Prescriptions: New cephalexin 500 mg capsule 500 mg PO QID 10 Days Qty: 40 0RF mupirocin 2 % ointment 1 applic topical TID 7 Days Qty: 15 0RF triamcinolone acetonide 0.1 % cream 1 applic topical BID PRN (Reason: itching) Qty: 30 0RF No Action sulfamethoxazole-trimethoprim [Bactrim DS] 800-160 mg tablet 1 tab PO DAILY 10 Days Qty: 10 0RF Kyleena 17.5 mcg/24 hrs (5 yrs) 19.5 mg intrauterine device 1 device intrauterine Referrals Follow up/Referrals: Ashley Lopez APRN [Primary Care Provider] - See instructions Activity Restrictions/Add. Instructions Additional Instructions/Restrictions: Keep the affected area clean and dry. Follow up with your regular doctor. Take the antibiotics as directed and apply the topical antibiotics as directed. Apply warm wet compresses to the affected area three or four times per day. GO TO THE ER FOR ANY WORSENING SYMPTOMS Clinical Impressions Clinical Impression: Cellulitis Instructions Patient Instructions: Cellulitis Print Language Print Language: Bulgarian Discharge ED Provider: Emigdio Rose [facility] General Stated complaint: poss spider bite Mode of Arrival: Ambulatory Source of Information: Patient Limitations: No Limitations Time Seen by Provider: 07/11/24 15:41 Description of Symptoms (Recalled from Triage Doc. by RN): r side poss spider bite HEENT Symptoms (Recalled from RN notes): No Resp Symptoms (Recalled from RN notes): No Skin Symptoms (Recalled from RN notes): Yes MS Symptoms (Recalled from RN notes): No Functional Status (Recalled from RN notes): na History of Present Illness Provider Complaint: She states that for the past 5 days she has had a red tender area on her left side. She denies any known injury or insect bite. She denies any fever, chills, or malaise. Related Data Home Medications ?Medication ?Instructions ?Recorded ?Confirmed levonorgestrel 17.5 mcg/24 hr (up 1 device intrauterine 01/08/24 02/08/24 to 5 yrs) 19.5mg intrauterine device (Kyleena) Previous Rx's ?Medication ?Instructions ?Recorded sulfamethoxazole 800 1 tab PO DAILY abscess 10 days #10 02/08/24 mg-trimethoprim 160 mg tablet tabs (Bactrim DS) cephalexin 500 mg capsule 500 mg PO QID 10 days #40 caps 07/11/24 mupirocin 2 % topical ointment 1 applic topical TID 7 days #15 07/11/24 grams triamcinolone acetonide 0.1 % 1 applic topical BID PRN itching 07/11/24 topical cream #30 grams Allergies Allergy/AdvReac Type Severity Reaction Status Date / Time No Known Allergies Allergy Verified 02/08/24 13:17 Worker's Comp Is this a Worker's Comp case?: No Is this an [facility] Worker's Comp?: No Is this a [facility] Worker's Comp?: No [facility] Disclaimer: The information contained in this section may have been updated after the patient was seen, as this information can be updated by other users. Medical History Encounter for IUD insertion Kyleena inserted 01/08/24 Abdominal pain Positive urine drug screen [facility] Surgical History History of section x2 Family History Other No significant family history Social History Smoking Status: Never smoker alcohol intake: never substance use type: denies use current occupational status: unemployed Travel in the last 8 weeks: None lives independently: Yes marital status: single number of children: 1 ROS Obtained: Yes All systems reviewed & no additional complaints except as documented Constitutional Constitutional: Denies chills and Denies fever(s) Eyes Eyes: Denies eye discharge ENT Ears, Nose, Lois
[2024-07-11 16:30] VITALS: BP 121/68; PULSE 73; RESP 18; TEMP 36.9; O2SAT 100
== END 2024-07-11 16:33 | disposition home or self-care (01) ==
PROVIDERS: Emergency Provider Nurse Practitioner Family; PCP Family Medicine
DX: L03.319 Cellulitis of trunk, unspecified (principal)
CPT/HCPCS: 99212; 99214; G0463

== ENCOUNTER 2024-12-23 15:28 | Outpatient (CLI) | payer MEDICAID, SELFPAY ==
[2024-12-23 19:08] LABS: Basophils # 0.1 K/mm3 (0-0.2); Basophils % 0.6 % (0.1-2.0); Eosinophils # 0.1 K/mm3 (0.0-0.4); Eosinophils % 0.8 % (0.1-12.0); Hemoglobin 13.6 g/dL (12.2-16.2); Lymphocytes # 2.2 K/mm3 (0.7-4.5); Lymphocytes % 24.4 % (10-50); Mean Corpuscular HGB Conc 31.6 g/dL (31.8-35.4); Mean Corpuscular Volume 85.5 fl (81-99); Mean Platelet Volume 10.7 fl (7.4-10.4); Monocytes # 0.5 K/mm3 (0.1-1.0); Monocytes % 5.5 % (1.7-9.3); Neutrophils # 6.1 K/mm3 (1.8-7.8); Neutrophils % 68.4 % (37.0-80.0); Platelet Count 293 K/mm3 (142-424); Red Blood Count 5.03 M/mm3 (4.20-5.40); Red Cell Distribution Width 13.3 % (11.5-17.5); White Blood Count 8.9 K/mm3 (4.8-10.8)
[2024-12-23 19:49] LABS: Alanine Aminotransferase 22 U/L (12-78); Albumin Level 5.4 g/dl (3.5-5.0); Albumin/Globulin Ratio 2.3 (1.1-1.8); Alkaline Phosphatase 57 U/L (38-126); Anion Gap 16.5 mEq/L (5-15); Aspartate Amino Transferase 25 U/L (14-36); Bilirubin,Total 0.5 mg/dl (0.2-1.3); Blood Urea Nitrogen 6 mg/dl (7-17); Calcium 9.6 mg/dl (8.4-10.2); Carbon Dioxide 28 mmol/L (22.0-30.0); Chloride 100 mmol/L (98-107); Chol/HDL Ratio 2.5 (1-3.5); Cholesterol 113 mg/dl (140-200); Estimated Glomerular Filt Rate 89 ml/min (>60); GFR (African American) 108 ML/MIN (>60); Globulin 2.3 g/dL (1.3-3.2); Glucose 83 mg/dl (74-100); HDL Cholesterol 46 mg/dl (40-60); Potassium 4.5 mmoL/L (3.5-5.1); Sodium 140 mmol/L (136-145); Total Protein,Serum 7.7 g/dl (6.3-8.2); Triglycerides 178 mg/dl (30-150); VLDL Cholesterol 36 mg/dL (0-40)
[2024-12-23 20:07] LABS: 25-OH Vitamin D, Total 19.1 ng/mL (30-100)
[2024-12-23 20:09] LABS: Free Thyroxine Index 2.2 ug/dL (5.93-13.13); T4 (Thyroxine) 7.4 ug/dl (5.53-11.0); Triiodothryronine (T3) Uptake 30 % (23.5-40.5)
[2024-12-23 20:13] LABS: Direct LDL Cholesterol < 30.00 mg/dL (100-129)
[2024-12-23 20:22] LABS: Thyroid Stimulating Hormone 0.81 uIU/mL (0.465-4.68)
[2024-12-23 20:39] LABS: Vitamin B12 298 pg/mL (239-931)
== END 2024-12-23 23:59 | disposition home or self-care (01) ==
LOC: LAB.DROPOF 12-24 08:57
PROVIDERS: PCP Family Medicine; Visit Provider Family Medicine
DX: F32.A Depression, unspecified (principal); E55.9 Vitamin D deficiency, unspecified; F41.9 Anxiety disorder, unspecified; R45.1 Restlessness and agitation; R45.86 Emotional lability
CPT/HCPCS: 80053; 80061; 82306; 82607; 84436; 84443; 84479; 85025